=== PATIENT | female | born 1965 | race Caucasian/White ===

== ENCOUNTER → 2017-01-16 | Outpatient (CLI) | payer BC ==
[~2017-01-16] MED LIST: BUPR-83 PO; CITA40TA12 PO; LOVA40TA4 PO
--- NOTE | 2017-01-16 11:49 | DIAGNOSTIC IMAGING REPORT ---
RIGHT FINGER(S) MIN 2 VIEWS ROUTINE CLINICAL HISTORY: PAIN IN RIGHT FINGER Right pain COMPARISON: None. DISCUSSION: The bones and joint spaces appear intact. There is no evidence of fracture, dislocation or bony disease. There is no evidence for soft tissue swelling. IMPRESSION: Negative study. Electronically signed by: Raul Akers M.D. 01/16/2017 11:48 AM Dictated Date/Time: 01/16/2017 11:48 AM
== END | disposition home or self-care (01) ==
LOC: C.RAD1850 11:07
PROVIDERS: ATTEND Nurse Practitioner Family
DX: M79.644 Pain in right finger(s) (principal)

== ENCOUNTER → 2017-07-18 | Outpatient (CLI) | payer BC ==
--- NOTE | 2017-07-18 12:18 | DIAGNOSTIC IMAGING REPORT ---
LEFT FOOT MIN 3 VIEWS ROUTINE CLINICAL HISTORY: ACUTE PAIN OF L FOOT pain COMPARISON: None. DISCUSSION: The bones and joint spaces appear intact. There is no evidence of fracture, dislocation or bony disease. There is no evidence for soft tissue swelling. Small heel spur IMPRESSION: Small heel spur. Otherwise negative study The above report was generated using voice recognition software. It may contain grammatical, syntax or spelling errors. Electronically signed by: Raul Akers M.D. 07/18/2017 12:17 PM Dictated Date/Time: 07/18/2017 12:15 PM
== END | disposition home or self-care (01) ==
LOC: C.RAD1850 12:04
PROVIDERS: ATTEND Nurse Practitioner Family
DX: M79.672 Pain in left foot (principal); M77.32 Calcaneal spur, left foot

== ENCOUNTER → 2017-11-15 | Outpatient (CLI) | payer OTHER ==
--- NOTE | 2017-11-16 14:40 | MAMMOGRAPHY REPORT ---
BILATERAL DIGITAL SCREENING MAMMOGRAM TOMOSYNTHESIS WITH CAD: 11/15/2017 CLINICAL HISTORY: Routine screening. Patient has no complaints. TECHNIQUE: Breast tomosynthesis in addition to standard 2D mammography was performed. Current study was also evaluated with a Computer Aided Detection (CAD) system. COMPARISON: Comparison is made to exams dated: 10/05/2016 mammogram, 10/05/2015 mammogram, 4 mammogram, 12/16/2013 mammogram, 12/11/2013 mammogram - [facility], and 11/08/2011 [facility]. BREAST COMPOSITION: The tissue of both breasts is heterogeneously dense, which may obscure small mas ses. FINDINGS: No suspicious masses, calcifications, or areas of architectural distortion are noted in ei ther breast. There has been no significant interval change compared to prior exams. Scattered bilater al benign-appearing calcifications are not significantly changed. IMPRESSION: ACR BI-RADS CATEGORY 2: BENIGN There is no mammographic evidence of malignancy. A 1 year screening mammogram is recommended. The pa tient will receive written notification of the results. Approximately 10% of breast cancers are not detected with mammography. A negative mammographic report should not delay biopsy if a clinically suggestive mass is present. Makenzie Deleon M.D. ah/:11/15/2017 15:18:02 Sales Correspondent: Shruthi WEBER)(M), [facility] letter sent: Normal 1/2 BI-RADS Code: ACR BI-RADS Category 2: Benign
== END | disposition home or self-care (01) ==
LOC: C.MAMM 14:45
PROVIDERS: ATTEND Nurse Practitioner Family
DX: Z12.31 Encounter for screening mammogram for malignant neoplasm of breast (principal)

== ENCOUNTER 2020-01-01 08:21 | Inpatient (IN) ==
--- NOTE | 2019-12-17 16:03 | PAT Medication Instructions ---
Medication Instructions Date of Service December 17, 2019 Home Medications albuterol sulfate 90 mcg/actuation aerosol inhaler 2 puffs INH Q6H PRN atorvastatin 40 mg tablet 40 mg PO QAM cetirizine 10 mg tablet 10 mg PO QAM citalopram 40 mg tablet 40 mg PO QAM lisinopril 2.5 mg tablet 2.5 mg PO QAM omega-3 fatty acids 1,000 mg capsule 1,000 mg PO QAM mometasone 1 puffs INH QAM STOP taking 2 weeks before surgery (or as soon as possible if surgery is within 2 weeks) omega-3 fatty acids 1,000 mg capsule 1,000 mg PO QAM DO NOT take the morning of surgery cetirizine 10 mg tablet 10 mg PO QAM lisinopril 2.5 mg tablet 2.5 mg PO QAM Take morning of surgery With a small sip of water, OTHERWISE NOTHING TO EAT OR DRINK AFTER MIDNIGHT: albuterol sulfate 90 mcg/actuation aerosol inhaler 2 puffs INH Q6H PRN (use if needed; please bring with you to hospital day of surgery if possible) atorvastatin 40 mg tablet 40 mg PO QAM citalopram 40 mg tablet 40 mg PO QAM mometasone 1 puffs INH QAM Take evening before surgery albuterol sulfate 90 mcg/actuation aerosol inhaler 2 puffs INH Q6H PRN (if needed) Other Notes If you have any questions please call us at [phone] or [phone] or [phone] or [phone]
--- NOTE | 2019-12-18 11:49 | Anesthesiology Consultation ---
Date of Service December 18, 2019 Assessment & Plan (1) Encounter for pre-operative examination: Chart Review Chart Review: Acceptable Risk for Surgery (pending surgeon ordered PCP clearance) and Patient seen in Pre Admission Testing PCP clearance scheduled 12/19 Teaching & Discussion Pre-Anesthesia Teaching/Discussion Notes: Instructed NPO after midnight before surgery,except medications with 15 cc of water. Medication instructions provided according to the PAT guidelines. History Surgery Operation Date: 01/01/20 10:30 Proposed Procedures p L4-S1 Decompression and Fusion, Spinal Cord Monitoring - Lenin Cedillo DO Height/Weight Height: 5 ft 2 in Weight: 97.3 kg Allergies Allergy/AdvReac Type Severity Reaction Status Date / Time No Known Allergies Allergy Mild Verified 12/17/19 08:18 Medications Home Medications Medication Instructions Recorded Confirmed Last Taken albuterol sulfate 90 mcg/actuation 2 puffs INH Q6H PRN 09/19/19 12/17/19 Unknown aerosol inhaler atorvastatin 40 mg tablet 40 mg PO QAM 09/19/19 12/17/19 Unknown cetirizine 10 mg tablet 10 mg PO QAM 09/19/19 12/17/19 Unknown citalopram 40 mg tablet 40 mg PO QAM tab 09/19/19 12/17/19 Unknown lisinopril 2.5 mg tablet 2.5 mg PO QAM 09/19/19 12/17/19 Unknown omega-3 fatty acids 1,000 mg 1,000 mg PO QAM 09/19/19 12/17/19 Unknown capsule mometasone 1 puffs INH QAM ea 09/24/19 12/17/19 Unknown Past Medical History Medical History Anxiety Asthma, mild persistent Stable and controlled- albuterol inhaler use rare Chronic rhinitis DDD (degenerative disc disease), lumbar Depression History of cellulitis STREP A - SEEN [facility] 2006 - SENT TO [facility] FOR DEBRIDEMENT- NO RECENT ISSUES Hyperlipidemia Hypertension Left bundle branch block Follows with Dr. Bruno (cardio)- has had subsequent negative stress test in 2018 for LBBB. Seasonal allergies Spinal stenosis Ulnar nerve entrapment at elbow S/p ulnar nerve compression- still has right UE Exercise / Class Metabolic Activity II 4-5 Yardwork/Stairs/Walk up hill (one flight of stairs- no chest pain or SOB ) Past Family History Family History Mother Hypertension Father Dementia Grandmother Cancer Grandfather (Paternal) Heart disease Past Surgical History Surgical History H/O laparoscopy History of arthroscopy of right shoulder History of carpal tunnel release History of cholecystectomy History of fusion of cervical spine History of surgery on arm FOR DEBREIDMENT CELLULITIS Hx of colonoscopy Hx of decompression of ulnar nerve RIGHT Hx of myringotomy S/P foot surgery, right Past Anesthesia History No Hx of Anesthesia Complications and No Family Hx of Anesthesia Complications History of PONV No Hx of PONV and Hx of Motion Sickness (mild - in car as passenger ) Social History Smoking Status: Never smoker Do You Dip or Chew Tobacco: No Hx Alcohol Use: No Hx Substance Use: No Review of Systems Patient denies chest pain, shortness of breath, dyspnea on exertion, reflux, cough, wheezing, palpitations. No hx of seizures, stroke, AL, apnea/snoring. No hx of blood clots or blood transfusions No recent steroid use Physical Exam Vital Signs VITALS BP 142/95 P 91 TEMP 98.4 SP02 96% RESP 16 Constitutional no acute distress ENMT Mouth: no TMJ clicking, no chipped teeth and no loose teeth Thyromental Distance: > or= 3.5 Finger Breadths (3.5) Mallampati Class: I Permanent implant- front top right Neck neck extension not limited (BUT DOES HAVE HX OF CERVICAL FUSION) Respiratory normal respiratory effort; no respiratory distress Auscultation: lungs clear to auscultation bilaterally; no diminished lung sounds and no wheezes Cardiovascular Rate/Rhythm: regular rate and regular rhythm Heart Sounds: no murmur Vessels: no carotid bruit Extremities: no edema Musculoskeletal Spine: no pain with cervical ROM Neurologic moves all extremities Psychiatric Orientation: alert Testing Laboratory Results 12/18/19 11:55 12/18/19 11:55 PT 10.2 Seconds (9.0-12.0) 12/18/19 11:55 INR 1.0 (0.9-1.1) 12/18/19 11:55 APTT 23.3 Seconds (21.0-31.0) 12/18/19 11:55 Urine Color Yellow 12/18/19 11:55 Urine Appearance Clear (Clear) 12/18/19 11:55 Urine pH 5.0 (4.5-7.5) 12/18/19 11:55 Ur Specific [place] 1.016 (1.000-1.030) 12/18/19 11:55 Urine Protein Negative (Negative) 12/18/19 11:55 Urine Glucose (UA) Negative (Negative) 12/18/19 11:55 Urine Ketones Negative (Negative) 12/18/19 11:55 Urine Nitrite Negative (Negative) 12/18/19 11:55 Ur Leukocyte Esterase Negative (Negative) 12/18/19 11:55 Blood Type O Positive 12/18/19 11:55 Antibody Screen NEGATIVE 12/18/19 11:55 Electrocardiogram Date: 12/18/19 Findings: + NSR @ (89) and + LBBB Chest X-Ray Date: 12/18/19 Findings: + NAD Echocardiogram Date: 10/22/19 EF: 67% LV Function: normal RWMA: + none Other Findings: + LVH (Mild/concentric) Valvular Disease: + no significant valvular disease Abnormal septal motion from conduction delay. Atrial septum hypermobile. Appears intact. Grade 1 diastolic dysfunction Stress Test Date: 08/09/18 Resting EF: 55% Resting LV Function: normal Resting RWMA: + none Stress EKG nondiagnostic for ischemia due to underlying left bundle branch block . Negative stress echo for ischemia 94% MPHR. Below average exercise tolerance for age and gender, 85% of predicted, achieving 7.0 METS. Resting echo shows abnormal septal motion consistent with left bundle branch block.
--- NOTE | 2019-12-18 12:43 | XRay Report ---
XR chest Pre-admission PA/Lat CLINICAL HISTORY: Preoperative chest COMPARISON STUDY: No previous studies for comparison. FINDINGS: The cardiac and mediastinal contours are normal. There is no evidence of focal pulmonary co nsolidation. There is no evidence of failure. No pleural effusions are visualized.[Postsurgical villalobos es are present within the cervical spine. IMPRESSION: No active disease in the chest. ACT 112: Negative or not required by law. Electronically signed by: Caleb Crum M.D. 12/18/2019 12:41 PM
--- NOTE | 2019-12-18 12:51 | Electrocardiogram Report ---
Test Reason : Blood Pressure : / mmHG Vent. Rate : 089 BPM Atrial Rate : 089 BPM P-R Int : 146 ms QRS Dur : 144 ms QT Int : 406 ms P-R-T Axes : 067 066 040 degrees QTc Int : 493 ms Normal sinus rhythm Left bundle branch block Abnormal ECG When compared with ECG of 27-MAR-2007 10:16, Left bundle branch block is now Present Confirmed by Johny Musa ([id number]) on 12/18/2019 12:51:51 PM Referred By: Lenin Cedillo Confirmed By:Johny Musa
[2019-12-18 13:54] LABS: Appearance Urine Clear (Clear); Bilirubin Urine Negative (Negative); Blood Urine Negative (Negative); Color Urine Yellow; Glucose Urine UA Negative (Negative); Ketones Urine Negative (Negative); Leukocyte Esterase Urine Negative (Negative); Nitrite Urine Negative (Negative); Protein Urine Negative (Negative); Specific Gravity Urine 1.016 (1.000-1.030); Urobilinogen Urine Negative (Negative)
[2019-12-18 13:55] LABS: Basophils # (auto) 0.01 K/uL (0-0.2); Basophils % (auto) 0.2 %; Eosinophils # (auto) 0.09 K/uL (0-0.5); Eosinophils % (auto) 1.8 %; Hematocrit (blood only) 37.3 % (37-47); Immature Granulocytes # (auto) 0.01 K/uL (0.00-0.02); Immature Granulocytes % (auto) 0.2 %; Lymphocytes # (auto) 2.05 K/uL (1.2-3.4); Lymphocytes % (auto) 41.5 %; Mean Corpuscular Hemoglobin 30.4 pg (25-34); Mean Corpuscular Hgb Conc 34.9 g/dL (32-36); Mean Corpuscular Volume 87.1 fL (80-100); Mean Platelet Volume 9.7 fL (7.4-10.4); Monocytes # (auto) 0.35 K/uL (0.11-0.59); Monocytes % (auto) 7.1 %; Neutrophils # (auto) 2.43 K/uL (1.4-6.5); Neutrophils % (auto) 49.2 %; Platelet Count 250 K/uL (130-400); RDW Coefficient of Variation 12.2 % (11.5-14.5); RDW Standard Deviation 39.1 fL (36.4-46.3); Red Blood Count 4.28 M/uL (4.2-5.4); White Blood Count 4.94 K/uL (4.8-10.8)
[2019-12-18 14:02] LABS: Partial Thromboplastin Ratio 0.9; Partial Thromboplastin Time 23.3 Seconds (21.0-31.0); Prothrombin Time 10.2 Seconds (9.0-12.0)
[2019-12-18 14:14] LABS: BUN Creatinine Ratio 14.5 (10-20); Calcium 9.4 mg/dl (8.5-10.1); Creatinine Clr Calc Pharmacy 62.3 ml/min; Est GFR (African American) 63.4; Est GFR (Non-African American) 54.7; Potassium 4.5 mmol/L (3.5-5.1)
[~2020-01-01 08:21] MED LIST changes: +ACETAMINOPHEN 500 MG TAB PO SCH; -BUPR-83 PO; +CEFAZOLIN 2000MG 2,000 MG/15 ML SYR IV SCH; -CITA40TA12 PO; +CeleBREX 200 MG CAP PO SCH; +GABAPENTIN 900 MG DOSE PO SCH; -LOVA40TA4 PO; +LR 15ML/HR IV SCH
[2020-01-01] MEDS ORDERED: DEXAMETHASONE SOD INJ 4 MG/ML VIAL ONE (09:12)
[2020-01-01] MEDS ORDERED: NEOSTIGMINE METHYLSULFATE 1 MG/ML 10ML VIAL ONE (09:12)
[2020-01-01] MEDS ORDERED: GLYCOPYRROLATE 0.2 MG/ML VIAL ONE (09:12)
[2020-01-01] MEDS ORDERED: LIDOCAINE HCL 2% 2 ML VIAL/AMP(20MG/ML) INFIL ONE (09:12)
[2020-01-01] MEDS ORDERED: ONDANSETRON INJ 2 MG/ML 2 ML VIAL ONE (09:12)
[2020-01-01] MEDS ORDERED: PROPOFOL IV EMULSION 10 MG/ML 20 ML VIAL IV ONE (09:12)
[2020-01-01] MEDS ORDERED: fentaNYL citrate 100 MCG/2 ML VIAL ONE (09:12)
[2020-01-01] MEDS ORDERED: MIDAZOLAM HCL 1 MG/ML 2ML VIAL ONE (09:12)
[2020-01-01] MEDS ORDERED: ROCURONIUM BROMIDE 10 MG/ML 5 ML VIAL ONE ×2 (09:12→11:42)
[2020-01-01] MEDS ORDERED: HYDROmorphone INJ 2 MG/ML SYR/VIAL ONE (09:13)
[2020-01-01] MEDS ORDERED: fentaNYL citrate 100 MCG/2 ML VIAL IV PRN (09:36)
[2020-01-01] MEDS ORDERED: ATROPINE SULFATE 0.1 MG/ML 10ML SYR IV PRN (09:36)
[2020-01-01] MEDS ORDERED: ONDANSETRON INJ 2 MG/ML 2 ML VIAL IV PRN ×2 (09:36→14:20)
[2020-01-01] MEDS ORDERED: HYDROmorphone INJ 2 MG/ML SYR/VIAL IV PRN (09:36)
[2020-01-01] MEDS ORDERED: PROMETHAZINE HCL 12.5 MG in SODIUM CHLORIDE 0.9% 50 ML IV PRN ×2 (09:36→14:20)
[2020-01-01] MEDS ORDERED: ePHEDrine sulfate 50 MG/ML AMP IV PRN (09:36)
--- NOTE | 2020-01-01 09:50 | History & Physical Bridge Note ---
Date of Service January 01, 2020 History & Physical Bridge Note I have examined the patient, reviewed the History & Physical and in the interval since the performance of the History & Physical I have noted the following changes of clinical significance: no changes noted
--- NOTE | 2020-01-01 09:51 | History & Physical Report ---
Date of Service January 01, 2020 Assessment & Plan (1) Neurogenic claudication due to lumbar spinal stenosis: L4-S1 decompression fusion Present on Admission?: Yes History of Present Illness Chief Complaint: Back and leg pain Primary Care Provider: Janel Benítez This is a 54-year-old female who presents with worsening back and leg pain. After failing extensive course of nonoperative care she is here for surgical intervention. Allergies Allergy/AdvReac Type Severity Reaction Status Date / Time No Known Allergies Allergy Mild Verified 01/01/20 08:48 Home Medications Home Medications Medication Instructions Recorded Confirmed Type albuterol sulfate 90 mcg/actuation 2 puffs INH Q6H PRN 09/19/19 01/01/20 History aerosol inhaler atorvastatin 40 mg tablet 40 mg PO QAM 09/19/19 01/01/20 History cetirizine 10 mg tablet 10 mg PO QAM 09/19/19 01/01/20 History citalopram 40 mg tablet 40 mg PO QAM tab 09/19/19 01/01/20 History lisinopril 2.5 mg tablet 2.5 mg PO QAM 09/19/19 01/01/20 History mometasone 1 puffs INH QAM ea 09/24/19 01/01/20 History bupropion HCl 100 mg PO DAILY 12/23/19 01/01/20 History Past Med/Surg History Medical History Anxiety Asthma, mild persistent Stable and controlled- albuterol inhaler use rare Chronic rhinitis DDD (degenerative disc disease), lumbar Depression History of cellulitis STREP A - SEEN [facility] 2006 - SENT TO [facility] FOR DEBRIDEMENT- NO RECENT ISSUES Hyperlipidemia Hypertension Left bundle branch block Follows with Dr. Bruno (cardio)- has had subsequent negative stress test in 2018 for LBBB. Seasonal allergies Spinal stenosis Ulnar nerve entrapment at elbow S/p ulnar nerve compression- still has right UE Surgical History H/O laparoscopy History of arthroscopy of right shoulder History of carpal tunnel release History of cholecystectomy History of fusion of cervical spine History of surgery on arm FOR DEBREIDMENT CELLULITIS Hx of colonoscopy Hx of decompression of ulnar nerve RIGHT Hx of myringotomy S/P foot surgery, right Family History Mother Hypertension Father Dementia Grandmother Cancer Grandfather (Paternal) Heart disease Social History (System 12/10/19 @ 15:04 by Yumi Aguayo) Preferred Language: Samoan Communication Ability: Effective Beliefs That Will Affect Care: None Current Living Situation: Spouse and Family Feels Safe at Home: Yes Smoking Status: Never smoker Do You Dip or Chew Tobacco: No ; Second Hand Exposure: No ; Hx Alcohol Use: No Hx Substance Use: No Physical Exam Physical Exam: Patient is alert and oriented neurologically intact. Results & Data Vital Signs (Past 12 Hours) Vital Signs Temp Pulse Resp BP Pulse Ox 01/01/20 08:57 36.8 C 72 20 139/83 96
[2020-01-01] MEDS ORDERED: BUPIVACAINE/EPINEPHRINE 0.5% MPF 1:200,000 10 ML VIAL ONE (10:09)
[2020-01-01] MEDS ORDERED: BACITRACIN INJ 50,000 UNIT VIAL ONE (10:10)
[2020-01-01] MEDS ORDERED: FLOSEAL HEMOSTATIC MATRIX 10ML TOP ONE (10:56)
[2020-01-01] MEDS ORDERED: PHENYLEPHRINE 100MCG/ML 5ML SYR ONE (11:46)
--- NOTE | 2020-01-01 12:18 | Operative Report ---
Post Operative Report Pre & Post Diagnosis Operation Date: 01/01/20 10:35 Pre-Op Diagnosis: Neurogenic claudication due to lumbar spinal stenosis Post-Op Diagnosis: Neurogenic claudication due to lumbar spinal stenosis I identified the patient and participated in the time-out.: Yes Procedure Operation Date: 01/01/20 10:35 Actual Procedures #1 lumbar decompression with bilateral medial facetectomies foraminotomies L3-4, L4-5, L5-S1. #2 posterior spinal fusion L4-5 L5-S1. #3 placement posterior instrumentation L4-5 L5-S1. #4 interbody fusion L4-5 L5-S1. #5 placed a peek cage 11 x 22 mm at L4-5 and L5-S1. #6 placement locally harvested morselized autograft in the posterior lateral gutters. #7 placement infuse collagen sponge, master graft in the posterior lateral gutters and ostial amp interbody space. Surgeon Lenin Cedillo, Business Travel Consultant Hui Zendejas Estimated Blood Loss 200 Findings See Below The patient is 5 feet 2 inches tall weighing over 96 kg with a BMI of 39. The patient's body habitus did add significant technical difficulty requiring her deepest retractors and longest instruments in order to perform her procedure. This added at least 50% increase in operative time. Specimens None Indications This is a 54-year-old female that presents with above-mentioned diagnosis after failing extensive course of nonoperative care is here for surgical invention. Description of Procedure Patient was met with identified informed consent obtained. Patient was then taken to the operative suite underwent intubation placed in a prone position the Alfonso table on top of the Norberto frame. All bony prominences well-padded eyes inspected to ensure no external pressure placed upon the. This point the lumbar spine was prepped and draped in the normal sterile fashion. Sharp dissection with the assistance of Bovie cautery was performed down to and exposing the lamina and transverse processes of L4-L5 and sacral ala bilaterally. From a caudal cephalad fashion complete laminectomy of L5 L4 and partial laminectomy of L3 is performed including bilateral medial facetectomies and foraminotomies addressing severe neural compression. Pedicle screws were then placed in L4-L5 and S1 levels bilaterally with assistance of fluoroscopy the proper sized kendra placed. By way of a transforaminal approach on the right complete discectomy of L5-S1 was performed endplates curetted to subcortical bleeding bone and a 11 x 22 mm peek cage filled with osteo-bone graft tapped in position. Then proceeded to L4-[address] of a transforaminal approach on the right complete discectomy was performed endplates curetted to subcortical bleeding bone and 11 x 22 mm peek cage filled with osteo-bone graft tapped in position. The rods were then locked into final position bilaterally. The transverse processes of L4-L5 and sacral ala burred to subcortical bleeding bone. Infuse collagen sponge master graft local autograft placed in the posterior lateral gutters. 15 round JENN drain inserted. The incision was then closed with 1 Vicryl in the fascia 2-0 Vicryl subcutaneously and 4 Monocryl for final skin closure. Steri- Strips dressings placed. Patient will continue to PACU stable addition. Please note Hui Zendejas present at the entire procedure involved the patient positioning complex portions of the surgery and final skin closure. Lastly spinal cord monitoring was utilized that the procedure no changes noted. I attest to the content of the Intraoperative Record and any orders documented therein. Any exceptions are noted below.
--- NOTE | 2020-01-01 13:01 | Fluoroscopy Report ---
FL lumbar spine 2-3V CLINICAL HISTORY: L4-S1 DECOMP/FUSION COMPARISON STUDY: None. FLUOROSCOPY TIME: 21 seconds. FLUOROSCOPIC IMAGES: 2 FINDINGS: These images demonstrate L4-L5 and L5-S1 discectomies with interbody spacer placement. Ther e is a posterior decompression. There are bilateral pedicle screws at the L4, L5 and S1 levels with i nterconnecting rods. Hardware is intact. There are no unexpected radiopaque foreign bodies. IMPRESSION: L4-S1 posterior decompression, discectomy and bilateral pedicle screw fusion. ACT 112: Negative or not required by law. Electronically signed by: Javed Schuler M.D. 01/01/2020 12:59 PM
--- NOTE | 2020-01-01 13:18 | Anesthesiology Progress Note ---
Date of Service January 01, 2020 Anesthesia Post Procedure Vital Signs Vital Signs: Temp Pulse Pulse Resp BP BP Pulse Ox 01/01/20 13:10 99 H 16 119/79 95 01/01/20 13:00 97 H 16 130/69 99 01/01/20 12:50 94 H 16 144/68 H 100 01/01/20 12:44 36.8 C 98 H 10 L 127/67 98 01/01/20 08:57 36.8 C 72 20 139/83 96 Transfer of Care Handoff Completed per policy Notes Mental Status: alert / awake / arousable and participated in evaluation Patient Amnestic to Procedure: Yes Nausea / Vomiting: adequately controlled Pain: adequately controlled Airway Patency, RR, SpO2: stable & adequate BP & HR: stable & adequate Hydration State: stable & adequate Anesthetic Complications: no major complications apparent and Pt Satisfied with anesthetic care
[2020-01-01] MEDS ORDERED: METOCLOPRAMIDE HCL INJ 5 MG/ML 2 ML VIAL IV PRN (14:20)
[2020-01-01] MEDS ORDERED: ACETAMINOPHEN 500 MG TAB PO PRN (14:20)
[2020-01-01] MEDS ORDERED: ACETAMINOPHEN 1,000 MG/100 ML VIAL IV PRN (14:20)
[2020-01-01] MEDS ORDERED: FAMOTIDINE 20 MG TAB PO PRN (14:20)
[2020-01-01] MEDS ORDERED: DO NOT ADMINISTER FLU VACCINE PRN (14:20)
[2020-01-01] MEDS ORDERED: NALOXONE HCL 0.4 MG/1 ML VIAL/CARP IV PRN (14:20)
[2020-01-01] MEDS ORDERED: ALBUTEROL HFA 8 GM INHALER INH PRN (14:20)
[2020-01-01] MEDS ORDERED: ALUMINUM/MAGNESIUM SUSP 30 ML UDC PO PRN (14:20)
[2020-01-01] MEDS ORDERED: ONDANSETRON 4 MG OD TAB PO PRN (14:20)
[2020-01-01] MEDS ORDERED: LORazepam 0.5 MG TAB PO PRN (14:20)
[2020-01-01] MEDS ORDERED: HYDROmorphone INJ 0.5 MG/0.5 ML SYR IV PRN (14:20)
[2020-01-01] MEDS ORDERED: bisacodyL 10 MG SUPP PR PRN (14:20)
[2020-01-01] MEDS ORDERED: DO NOT ADMINISTER PNEUMOCOCCAL VACCINE PRN (14:20)
[2020-01-01] MEDS ORDERED: LORazepam 0.5 MG/1 ML VIAL IV PRN (14:20)
[2020-01-01] MEDS ORDERED: SOD PHOSPHATE/SOD BIPHOSPHATE ENEMA 132 ML BTL PR PRN (14:20)
[2020-01-01] MEDS ORDERED: MAGNESIUM HYDROXIDE SUSP 30 ML UDC PO PRN (14:20)
[2020-01-01] MEDS: KETOROLAC TROMETHAMINE 15 MG/ML VIAL IV SCH ×2 (15:14→20:20)
[2020-01-01] MEDS: LACTATED RINGER'S 1,000 ML IV SCH ×2 (16:10→20:16)
[2020-01-01] MEDS: FLUTICASONE FUROATE 100MCG 14 PUFFS/INHALER INH SCH (16:10)
[2020-01-01] MEDS: TRAMADOL HCL 50 MG TABLET PO PRN (17:33)
[2020-01-01] MEDS ORDERED: Nursing to Pharmacy Communication ONE ×2 (18:04→18:30)
[2020-01-01] MEDS: CEFAZOLIN 2000MG 2,000 MG/15 ML SYR IV SCH (18:43)
[2020-01-01] MEDS: DOCUSATE SODIUM/SENNA 50/8.6MG TAB PO SCH (20:17)
[2020-01-01 22:04] LABS: Appearance Urine Clear (Clear); Bilirubin Urine Negative (Negative); Blood Urine Negative (Negative); Color Urine Yellow; Glucose Urine UA Negative (Negative); Ketones Urine Negative (Negative); Leukocyte Esterase Urine Negative (Negative); Nitrite Urine Negative (Negative); Protein Urine Negative (Negative); Specific Gravity Urine 1.012 (1.000-1.030); Urobilinogen Urine Negative (Negative)
[2020-01-02] MEDS: CEFAZOLIN 2000MG 2,000 MG/15 ML SYR IV SCH (00:06)
[2020-01-02] MEDS: OXYCODONE HCL IR 5 MG TAB (IMMEDIATE RELEASE) PO PRN ×6 (00:06→23:21)
[2020-01-02] MEDS: KETOROLAC TROMETHAMINE 15 MG/ML VIAL IV SCH ×2 (00:07→09:04)
[2020-01-02] MEDS: POLYETHYLENE (MIRALAX) 17 GM PACK PO SCH ×4 (05:46→23:21)
[2020-01-02 07:03] LABS: Hematocrit (blood only) 32.8 % (37-47); Hemoglobin 11.2 g/dL (12.0-16.0); Immature Granulocytes # (auto) 0.05 K/uL (0.00-0.02); Immature Granulocytes % (auto) 0.4 %; Lymphocytes # (auto) 1.29 K/uL (1.2-3.4); Lymphocytes % (auto) 10.3 %; Mean Corpuscular Hemoglobin 30.3 pg (25-34); Mean Corpuscular Hgb Conc 34.1 g/dL (32-36); Mean Corpuscular Volume 88.6 fL (80-100); Mean Platelet Volume 9.7 fL (7.4-10.4); Monocytes % (auto) 4.8 %; Neutrophils # (auto) 10.56 K/uL (1.4-6.5); Neutrophils % (auto) 84.5 %; Platelet Count 241 K/uL (130-400); RDW Coefficient of Variation 11.9 % (11.5-14.5); RDW Standard Deviation 38.6 fL (36.4-46.3)
[2020-01-02 07:32] LABS: BUN Creatinine Ratio 14.3 (10-20); Calcium 9.1 mg/dl (8.5-10.1); Creatinine Clr Calc Pharmacy 61.5 ml/min; Est GFR (African American) 62.7; Est GFR (Non-African American) 54.1; Potassium 4.1 mmol/L (3.5-5.1)
--- NOTE | 2020-01-02 08:11 | Anesthesiology Progress Note ---
Date of Service January 02, 2020 Anesthesia Post Procedure Vital Signs Vital Signs: Temp Pulse Pulse Resp BP BP Pulse Ox 01/02/20 07:45 37.3 C 87 16 121/71 93 01/02/20 03:50 37.2 C 85 14 120/72 96 01/01/20 23:56 36.8 C 85 14 121/73 96 01/01/20 20:00 36.7 C 109 H 16 138/79 93 01/01/20 19:28 36.5 C 94 H 16 114/75 97 01/01/20 18:42 36.8 C 96 H 16 118/73 98 01/01/20 17:54 90 98/64 L 97 01/01/20 17:04 36.8 C 92 H 18 148/84 H 94 01/01/20 16:08 36.9 C 99 H 16 100/66 92 01/01/20 15:12 36.4 C L 96 H 16 124/64 99 01/01/20 14:35 36.3 C L 98 H 20 111/72 99 01/01/20 14:05 36.5 C 95 H 16 109/69 98 01/01/20 13:50 100 H 13 109/68 100 01/01/20 13:35 36.6 C 96 H 12 124/61 96 01/01/20 13:20 36.6 C 94 H 16 120/66 96 01/01/20 13:10 99 H 16 119/79 95 01/01/20 13:00 97 H 16 130/69 99 01/01/20 12:50 94 H 16 144/68 H 100 01/01/20 12:44 36.8 C 98 H 10 L 127/67 98 01/01/20 08:57 36.8 C 72 20 139/83 96 Pain Intensity Right Leg: Pain Intensity: 4 Back: Pain Intensity: 5 Notes Mental Status: alert / awake / arousable Patient Amnestic to Procedure: Yes Nausea / Vomiting: adequately controlled Pain: adequately controlled (pt states she is comfortable with where her pain is at; she wants to continue to not take narcotics if she is able to tolerate it.) Airway Patency, RR, SpO2: stable & adequate BP & HR: stable & adequate Hydration State: stable & adequate Anesthetic Complications: no major complications apparent
[2020-01-02] MEDS: CITALOPRAM 40 MG TAB PO SCH (08:58)
[2020-01-02] MEDS: FLUTICASONE FUROATE 100MCG 14 PUFFS/INHALER INH SCH (08:58)
[2020-01-02] MEDS: BuPROPion SR 100 MG TABCR PO SCH (08:59)
[2020-01-02] MEDS: ATORVASTATIN 40 MG TAB PO SCH (08:59)
[2020-01-02] MEDS: CETIRIZINE HCL 10 MG TABLET PO SCH (09:00)
--- NOTE | 2020-01-02 13:58 | Orthopedic Progress Note ---
Date of Service January 02, 2020 Assessment & Plan (1) Neurogenic claudication due to lumbar spinal stenosis: This time we will continue physical therapy monitor JENN operatively discharge home in the next few days Present on Admission?: Yes Admission and Anticipated Discharge Date Admission Date: January 01, 2020 Subjective Back pain controlled leg pain improved Physical Exam Physical Exam: Patient is good strength testing appears comfortable. Results & Data ([facility]) Vital Signs (Past 12 Hours) Vital Signs Temp Pulse Pulse Resp BP BP Pulse Ox 01/02/20 12:05 36.8 C 82 16 111/69 97 01/02/20 08:57 79 121/76 01/02/20 07:45 37.3 C 87 16 121/71 93 01/02/20 03:50 37.2 C 85 14 120/72 96
[2020-01-02] MEDS: DOCUSATE SODIUM/SENNA 50/8.6MG TAB PO SCH (20:30)
[2020-01-03] MEDS: HYDROmorphone INJ 1 MG/ML SYRINGE IV PRN ×2 (00:15→06:25)
[2020-01-03] MEDS: TRAMADOL HCL 50 MG TABLET PO PRN ×3 (02:37→16:47)
[2020-01-03] MEDS: OXYCODONE HCL IR 5 MG TAB (IMMEDIATE RELEASE) PO PRN ×4 (04:26→20:39)
[2020-01-03] MEDS: CITALOPRAM 40 MG TAB PO SCH (08:13)
[2020-01-03] MEDS: FLUTICASONE FUROATE 100MCG 14 PUFFS/INHALER INH SCH (08:13)
[2020-01-03] MEDS: BuPROPion SR 100 MG TABCR PO SCH (08:14)
[2020-01-03] MEDS: ATORVASTATIN 40 MG TAB PO SCH (08:14)
[2020-01-03] MEDS: CETIRIZINE HCL 10 MG TABLET PO SCH (08:14)
[2020-01-03] MEDS ORDERED: DEXAMETHASONE SOD PHOSPHATE 8 MG in SYRINGE 0 ML IV STA (10:24)
--- NOTE | 2020-01-03 10:29 | Orthopedic Progress Note ---
Date of Service January 03, 2020 Assessment & Plan (1) Neurogenic claudication due to lumbar spinal stenosis: At this time we will continue physical therapy monitor her JENN output anticipate discharge home tomorrow. Present on Admission?: Yes Admission and Anticipated Discharge Date Admission Date: January 01, 2020 Subjective Back pain controlled leg pain improved. Physical Exam Physical Exam: Patient is good strength testing. Results & Data ([facility]) Vital Signs (Past 12 Hours) Vital Signs Temp Pulse Resp BP BP Pulse Ox 01/03/20 08:16 123/76 01/03/20 06:34 37.1 C 90 16 110/75 96 01/02/20 22:56 37.1 C 92 H 16 109/70 94
[2020-01-03] MEDS: DOCUSATE SODIUM/SENNA 50/8.6MG TAB PO SCH (20:37)
[2020-01-04] MEDS: OXYCODONE HCL IR 5 MG TAB (IMMEDIATE RELEASE) PO PRN ×2 (00:37→08:06)
[2020-01-04] MEDS: BuPROPion SR 100 MG TABCR PO SCH (08:07)
[2020-01-04] MEDS: ATORVASTATIN 40 MG TAB PO SCH (08:07)
[2020-01-04] MEDS: CETIRIZINE HCL 10 MG TABLET PO SCH (08:07)
[2020-01-04] MEDS: CITALOPRAM 40 MG TAB PO SCH (08:07)
[2020-01-04] MEDS: FLUTICASONE FUROATE 100MCG 14 PUFFS/INHALER INH SCH (08:07)
--- NOTE | 2020-01-04 08:54 | Discharge Summary ---
Date of Service January 04, 2020 Admission HPI Per Admitting Provider This is a 54-year-old female who presents with worsening back and leg pain. After failing extensive course of nonoperative care she is here for surgical intervention. Discharge Data Consultations 01/01/20 14:20 Consult Case Management - Discharge Planning Routine Procedures Performed Operation Date: 01/01/20 10:35 Actual Procedures p L4-S1 Decompression and Fusion, Spinal Cord Monitoring(Not Applicable) - Lenin Cedillo DO Hospital Course (1) Lumbar spinal stenosis: Patient is a 54-year-old female history physical examination her graft images consistent with spinal stenosis. This reason she brought to the operating room and underwent a lumbar decompression and fusion from L4 to the sacrum. She is brought to PACU in stable condition. She was transferred to the orthopedic floor with a JENN drain Benson in place. She is seen by physical therapy postop day #1 for ambulation gait training. Throughout her hospital course her dressing including dry and intact her calves remained supple nontender her abdomen supple nontender. On 01/04/2020 the patient was deemed safe for home discharge. Her discharge instructions for avoid any lifting heavier than 5 to 7 pounds and avoid any full bending at the waist. There were going to change her dressing and DC her drain prior to discharge. She is to change dressing once daily till there is no drainage then she may begin showering. She is to maintain her compression stockings for 2 weeks as well. We will see her in the office in approximately 2 weeks which time AP lateral lumbar spine films will be obtained she is to call and be seen sooner if she develops any increased pain, drainage from the incision, fevers or chills.
[2020-01-04] MEDS: TRAMADOL HCL 50 MG TABLET PO PRN (10:30)
== END 2020-01-04 11:23 | disposition home or self-care (01) | DRG 455 ==
LOC: ASU 08:21 → MERGE 10:30 → 3E 12:56

== ENCOUNTER 2023-01-06 09:32 | Inpatient (IN) ==
--- NOTE | 2022-11-29 12:24 | PAT Medication Instructions ---
Medication Instructions Date of Service November 29, 2022 Home Medications albuterol sulfate 90 mcg/actuation aerosol inhaler (Ventolin HFA) 2 puffs inhalation Q6H PRN ASTHMA atorvastatin 40 mg tablet (Lipitor) 40 mg PO QAM cetirizine 10 mg tablet 10 mg PO QAM citalopram 40 mg tablet 40 mg PO QAM lisinopril 2.5 mg tablet 2.5 mg PO QAM bupropion HCl 100 mg tablet,12 hr sustained-release 100 mg PO QAM diltiazem HCl 120 mg capsule,extended release 12 hr 120 mg PO QAM budesonide-formoterol HFA 80 mcg-4.5 mcg/actuation aerosol inhaler (Symbicort) 2 puff inhalation BID PRN Wheezing DO NOT take the morning of surgery cetirizine 10 mg tablet 10 mg PO QAM lisinopril 2.5 mg tablet 2.5 mg PO QAM Take morning of surgery With a small sip of water, OTHERWISE NOTHING TO EAT OR DRINK AFTER MIDNIGHT: albuterol sulfate 90 mcg/actuation aerosol inhaler (Ventolin HFA) 2 puffs inhalation Q6H PRN ASTHMA (use if needed; please bring with you to hospital day of surgery if possible) atorvastatin 40 mg tablet (Lipitor) 40 mg PO QAM citalopram 40 mg tablet 40 mg PO QAM bupropion HCl 100 mg tablet,12 hr sustained-release 100 mg PO QAM diltiazem HCl 120 mg capsule,extended release 12 hr 120 mg PO QAM budesonide-formoterol HFA 80 mcg-4.5 mcg/actuation aerosol inhaler (Symbicort) 2 puff inhalation BID PRN Wheezing (if needed) Take evening before surgery albuterol sulfate 90 mcg/actuation aerosol inhaler (Ventolin HFA) 2 puffs inhalation Q6H PRN ASTHMA (if needed) budesonide-formoterol HFA 80 mcg-4.5 mcg/actuation aerosol inhaler (Symbicort) 2 puff inhalation BID PRN Wheezing (if needed) Other Notes If you have any questions please call us at [phone] or [phone] or [phone] or [phone]
--- NOTE | 2022-12-06 10:49 | Anesthesiology Consultation ---
Date of Service December 06, 2022 Assessment & Plan (1) Encounter for pre-operative examination: - COVID screening: Per assessment on 12/06: No known COVID-19 positive contacts or current COVID-19 related symptoms. Travel screen negative. At surgeon discretion if preop Covid testing being done. - S/P L4-S1 decompression/fusion (01/01/20): Grade view 1, Stevens #2, ETT 7.5 at [facility]. No issues noted per post-op anesthesia progress note. - Pt scheduled to see cardiology prior to surgery. Awaiting cardiology office visit note (Dr. Bruno, appt 12/07). Chart Review Chart Review: Patient seen in Pre Admission Testing Teaching & Discussion Pre-Anesthesia Teaching/Discussion Notes: Instructed NPO after midnight before surgery,except medications with 15 cc of water. Medication instructions provided according to the PAT guidelines. History Surgery Operation Date: 12/22/22 07:45 Proposed Procedures p L3-L4 Decompression, L3-S1 Fusion, L4-S1 Hardware Removal, Spinal Cord Monitor amy - Lenin Cedillo, Height/Weight Height: 5 ft 2 in Weight: 98.3 kg Allergies Allergy/AdvReac Type Severity Reaction Status Date / Time No Known Allergies Allergy Mild Verified 11/25/22 12:04 Medications Home Medications Medication Instructions Recorded Confirmed Last Taken albuterol sulfate 90 mcg/actuation 2 puffs inhalation Q6H PRN ASTHMA 09/19/19 11/25/22 Unknown aerosol inhaler (Ventolin HFA) atorvastatin 40 mg tablet (Lipitor) 40 mg PO QAM 09/19/19 11/25/22 12/31/19 08:00 citalopram 40 mg tablet 40 mg PO QAM 09/19/19 11/25/22 01/01/20 06:30 lisinopril 2.5 mg tablet 2.5 mg PO QAM 09/19/19 11/25/22 01/01/20 06:30 bupropion HCl 100 mg tablet,12 hr 100 mg PO QAM 12/23/19 11/25/22 12/31/19 08:00 sustained-release diltiazem HCl 120 mg 120 mg PO QAM 09/25/20 11/25/22 Unknown capsule,extended release 12 hr budesonide-formoterol HFA 80 2 puff inhalation BID PRN Wheezing 11/25/22 11/25/22 Unknown mcg-4.5 mcg/actuation aerosol inhaler (Symbicort) Past Medical History Medical History Anxiety Chronic rhinitis DDD (degenerative disc disease), lumbar Depression History of cellulitis Strep A (seen at [facility] 2006), sent to [facility] for debridement, no recent issues Hyperlipidemia Hypertension Left bundle branch block Follows with Dr. Bruno (cardio) Has had subsequent negative stress test in 2018 for LBBB evaluation Mild intermittent asthma Morbid obesity Seasonal allergies Spinal stenosis Exercise / Class Metabolic Activity II 4-5 Yardwork/Stairs/Walk up hill (one FS (no CP, no SOB)) Past Family History Family History Mother Hypertension Father Dementia Grandmother Cancer Grandfather (Paternal) Heart disease Past Surgical History Surgical History H/O laparoscopy History of arthroscopy of right shoulder History of carpal tunnel release History of cholecystectomy History of fusion of cervical spine C4-C5, good ROM per pt History of lumbar fusion L4-S1 decompression/fusion (01/01/20): Grade view 1, Stevens #2, ETT 7.5 at [facility]. No issues noted per post-op anesthesia progress note. History of surgery on arm Debridement (for cellulitis) Hx of colonoscopy Hx of decompression of ulnar nerve Right Hx of myringotomy S/P foot surgery, right Past Anesthesia History No Hx of Anesthesia Complications and No Family Hx of Anesthesia Complications History of PONV No Hx of PONV and Hx of Motion Sickness Social History Smoking Status: Never smoker Do You Dip or Chew Tobacco: No Hx Alcohol Use: No Hx Substance Use: No substance use type: does not use Review of Systems Intermittent, non-productive cough r/t allergies/environmental stressors. Patient denies chest pain, shortness of breath, dyspnea on exertion, fever, chills, wheezing, palpitations. Physical Exam Vital Signs VITALS BP 118/66 P 80 TEMP 98.3 SP02 99%RA RESP 16 PHYSICAL Full cervical extension range of motion. Full TMJ range of motion. TMD 3 finger breaths Mallampati Score 1 Dentition: intact, upper front right side implant Lungs: clear throughout to auscultation Cardiac: regular rate and rhythm, no murmurs noted Spine: normal Carotid arteries: negative bruit Extremities: no edema Lab Results Anesthesia Preop Results Results Anesthesia Widget: WBC 5.79 K/ul (4.8-10.8) 12/06/22 Hgb 13.4 g/dl (12.0-16.0) 12/06/22 Hct 38.9 % (37.0-47.0) 12/06/22 Plt 280 K/uL (130-400) 12/06/22 Na 139 mmol/L (136-145) 12/06/22 K 4.6 mmol/L (3.5-5.1) 12/06/22 Cl 104 mmol/L (98-107) 12/06/22 CO2 31 mmol/L (21-32) 12/06/22 BUN 17 mg/dl (6-23) 12/06/22 Creat 1.05 mg/dl (0.6-1.2) 12/06/22 Glucose Level 94 mg/dl (70-99(Fasting)) 12/06/22 PT 10.3 Seconds (9.0-12.0) 12/06/22 PTT 24.4 Seconds (21.0-31.0) 12/06/22 INR 1.0 (0.9-1.1) 12/06/22 Urine Color Yellow 12/06/22 Urine Appearance Clear (Clear) 12/06/22 Urine pH 5.0 (4.5-7.5) 12/06/22 Urine Specific [place] 1.021 (1.000-1.030) 12/06/22 Urine Protein Negative (Negative) 12/06/22 Urine Glucose (UA) Negative (Negative) 12/06/22 Urine Ketones Negative (Negative) 12/06/22 Urine Blood Negative (Negative) 12/06/22 Urine Nitrite Negative (Negative) 12/06/22 Urine Bilirubin Negative (Negative) 12/06/22 Urine Urobilinogen Negative (Negative) 12/06/22 Urine Leukocyte Esterase Negative (Negative) 12/06/22 Blood Type O Positive 12/06/22 Antibody Screen NEGATIVE 12/06/22 Testing Electrocardiogram Date: 12/06/22 NSR at 74bpm. LBBB. No significant change compared to 12/18/2019 per category development manager review. Chest X-Ray Date: 12/06/22 FINDINGS: PA and lateral chest radiographs are compared to study dated 12/18/2019. The cardiomediastinal silhouette is unremarkable. The lungs and pleural spaces are clear. There is no pneumothorax. The bony thorax appears intact. Fusion hardware is noted in the lower cervical spine. Cholecystectomy clips are seen in the right upper quadrant. IMPRESSION: No active disease in the chest. Echocardiogram Date: 10/22/19 EF: 67% LV Function: normal RWMA: + none Other Findings: + LVH (Mild/concentric) Valvular Disease: + no significant valvular disease Abnormal septal motion from conduction delay. Atrial septum hypermobile. Appears intact. Grade 1 diastolic dysfunction Stress Test Date: 08/09/18 Resting EF: 55% Resting LV Function: normal Resting RWMA: + none Stress EKG nondiagnostic for ischemia due to underlying left bundle branch block. Negative stress echo for ischemia 94% MPHR. Below average exercise tolerance for age and gender, 85% of predicted, achieving 7.0 METS. Resting echo shows abnormal septal motion consistent with left bundle branch block. Other Testing CT Sinuses (10/07/22) Mild sinus mucosal thickening, as described above. No CT evidence for acute sinusitis. Narrowed but patent major drainage pathways, as above. Mild rightward deviation of the nasal septum. COVID-19 Risk Screen Screening Information COVID-19 Screen Date: 12/06/22 Exposure 21 Days Family/Household +COVID Last 21 Days: No Exposure 10 Days Any COVID Exposure Last 10 Days: No Symptoms Last 10 Days Experienced COVID Sx Last 10 Days: No + COVID 0-90 Days COVID + in Last 0-90 Days: No
[~2023-01-06 09:32] MED LIST changes: -CEFAZOLIN 2000MG 2,000 MG/15 ML SYR IV SCH; +GABAPENTIN 600 MG DOSE PO SCH; -GABAPENTIN 900 MG DOSE PO SCH; +ceFAZolin 2000MG 2,000 MG/15 ML SYR IV SCH
[2023-01-06] MEDS ORDERED: PROMETHAZINE HCL 6.25 MG in SODIUM CHLORIDE 0.9% 50 ML IV PRN (10:07)
[2023-01-06] MEDS ORDERED: ATROPINE SULFATE 0.1 MG/ML 10ML SYR IV PRN (10:07)
[2023-01-06] MEDS ORDERED: ePHEDrine sulfate 50 MG/ML AMP IV PRN (10:07)
[2023-01-06] MEDS ORDERED: ONDANSETRON INJ 2 MG/ML 2 ML VIAL IV PRN ×2 (10:07→16:22)
[2023-01-06] MEDS ORDERED: HYDROmorphone INJ 2 MG/ML SYR/VIAL IV PRN (10:07)
[2023-01-06] MEDS ORDERED: MIDAZOLAM HCL 1 MG/ML 2ML VIAL ONE (10:25)
[2023-01-06] MEDS ORDERED: PROPOFOL IV EMULSION 10 MG/ML 20 ML VIAL IV ONE (10:25)
[2023-01-06] MEDS ORDERED: LIDOCAINE 2% MPF LOCAL 5 ML VIAL INFIL ONE (10:25)
[2023-01-06] MEDS ORDERED: KETAMINE 50 MG/5 ML SYRINGE ONE (10:25)
[2023-01-06] MEDS ORDERED: DEXAMETHASONE SOD INJ 4 MG/ML VIAL ONE (10:25)
[2023-01-06] MEDS ORDERED: fentaNYL citrate PF 100 MCG/2 ML VIAL ONE (10:25)
[2023-01-06] MEDS ORDERED: ONDANSETRON INJ 2 MG/ML 2 ML VIAL ONE (10:25)
[2023-01-06] MEDS ORDERED: ROCURONIUM BROMIDE 10 MG/ML 5 ML VIAL IV ONE (10:25)
[2023-01-06] MEDS ORDERED: HYDROmorphone INJ 2 MG/ML SYR/VIAL ONE (10:25)
[2023-01-06] MEDS ORDERED: SODIUM CHLORIDE 0.9% PF INJ 10 ML VIAL ONE (10:35)
[2023-01-06 10:43] LABS: Pregnancy Test, Serum Negative (Negative)
--- NOTE | 2023-01-06 11:06 | History & Physical Bridge Note ---
Date of Service January 06, 2023 History & Physical Bridge Note I have examined the patient, reviewed the History & Physical and in the interval since the performance of the History & Physical I have noted the following changes of clinical significance: no changes noted
--- NOTE | 2023-01-06 11:08 | History & Physical Report ---
Date of Service January 06, 2023 Assessment & Plan (1) Neurogenic claudication due to lumbar spinal stenosis: Plan: L3-L4 decompression, L3-S1 fusion, L4-S1 hardware removal History of Present Illness Chief Complaint: Back and leg pain Primary Care Provider: VALENCIA Salinas This is a 57-year-old female known to me the presents with chronic persistent back and leg pain after failing course of nonoperative care she is here for surgical intervention. Allergies Allergy/AdvReac Type Severity Reaction Status Date / Time No Known Allergies Allergy Mild Verified 01/06/23 10:20 Home Medications Medication Instructions Recorded Confirmed Type albuterol sulfate 90 mcg/actuation 2 puffs inhalation Q6H PRN ASTHMA 09/19/19 01/06/23 History aerosol inhaler (Ventolin HFA) atorvastatin 40 mg tablet (Lipitor) 40 mg PO QAM 09/19/19 01/06/23 History citalopram 40 mg tablet 40 mg PO QAM 09/19/19 01/06/23 History lisinopril 2.5 mg tablet 2.5 mg PO QAM 09/19/19 01/06/23 History bupropion HCl 100 mg tablet,12 hr 100 mg PO QAM 12/23/19 01/06/23 History sustained-release diltiazem HCl 120 mg 120 mg PO QAM 09/25/20 01/06/23 History capsule,extended release 12 hr budesonide-formoterol HFA 80 2 puff inhalation BID PRN Wheezing 11/25/22 01/06/23 History mcg-4.5 mcg/actuation aerosol inhaler (Symbicort) Past Med/Surg History Medical History Anxiety Chronic rhinitis DDD (degenerative disc disease), lumbar Depression History of cellulitis Strep A (seen at [facility] 2006), sent to [facility] for debridement, no recent issues Hyperlipidemia Hypertension Left bundle branch block Follows with Dr. Bruno (cardio) Has had subsequent negative stress test in 2018 for LBBB evaluation Mild intermittent asthma Morbid obesity Seasonal allergies Spinal stenosis Surgical History H/O laparoscopy History of arthroscopy of right shoulder History of carpal tunnel release History of cholecystectomy History of fusion of cervical spine C4-C5, good ROM per pt History of lumbar fusion L4-S1 decompression/fusion (01/01/20): Grade view 1, Stevens #2, ETT 7.5 at [facility]. No issues noted per post-op anesthesia progress note. History of surgery on arm Debridement (for cellulitis) Hx of colonoscopy Hx of decompression of ulnar nerve Right Hx of myringotomy S/P foot surgery, right Family History Mother Hypertension Father Dementia Grandmother Cancer Grandfather (Paternal) Heart disease Social History Smoking Status: Never smoker Second Hand Exposure: No; Do You Dip or Chew Tobacco: No; Hx Alcohol Use: No Hx Substance Use: No Preferred Language: Latvian Communication Ability: Effective Manufacturing Lab Technician Required: No Beliefs That Will Affect Care: None marital status: Current Living Situation: Family Other Information That Helps Us Care for You: No Feels Safe at Home: Yes Safety Concerns: Feels Safe At This Time Assistive Devices: Glasses Physical Exam Physical Exam: Patient is alert and oriented Heart regular rhythm Lungs clear Results & Data Results & Data ([facility]) Vital Signs (Past 12 Hours) Vital Signs Temp Pulse Resp BP Pulse Ox O2 Del Method 01/06/23 10:12 36.4 C L 81 20 159/86 H 97 Room Air
[2023-01-06] MEDS ORDERED: BUPIVACAINE/EPINEPHRINE 0.25% 1:200,000 30 ML VIAL ONE (11:38)
[2023-01-06] MEDS ORDERED: ceFAZolin 330 MG/ML 1 GM VIAL ONE (11:38)
[2023-01-06] MEDS ORDERED: FLOSEAL HEMOSTATIC MATRIX 10ML TOP ONE (12:46)
[2023-01-06] MEDS ORDERED: ALBUMIN HUMAN 5% 12.5 GM/250 ML VIAL IV ONE (12:50)
[2023-01-06] MEDS ORDERED: PHENYLEPHRINE HCL 10 MG/ML VIAL ONE (13:06)
[2023-01-06] MEDS ORDERED: ePHEDrine sulfate 50 MG/ML AMP ONE (13:12)
[2023-01-06] MEDS ORDERED: SUGAMMADEX SODIUM 200 MG/2 ML VIAL IV ONE (13:52)
--- NOTE | 2023-01-06 14:16 | Operative Report ---
Post Operative Report Pre & Post Diagnosis Operation Date: 01/06/23 11:25 Pre-Op Diagnosis: Lumbar disc herniation with radiculopathy Post-Op Diagnosis: Same I identified the patient and participated in the time-out.: Yes Procedure Operation Date: 01/06/23 11:25 Actual Procedures #1 removal of posterior instrumentation L4-S1. #2 exploration of fusion L4-S1. #3 lumbar decompression bilateral medial facetectomies foraminotomies L2-L3 L3- L4. #4 posterior spinal fusion L3-L4. #5 placement posterior instrumentation L3-S1. #6 interbody fusion L3-L4. #7 placement of Spira 10 x 22 mm cage at L3- L4. #8 placement locally harvested morselized autograft and posterior gutters. #9 placement I factor combined with V toss in the interbody space and posterior lateral gutters. Surgeon Lenin Cedillo, Program Trainer None Estimated Blood Loss 200 Findings See Below The patient is 5 foot 2 weighing over 97 kg with a BMI in excess of 39. Patient's body habitus did contribute to significant technical difficulty required deepest retractors longer instruments in order to perform her procedure. This had at least 50% increased operative time. Specimens None Indications This is a 57-year-old female who presents above-mentioned diagnosis after failing an extensive course of nonoperative care she is here for surgical invention. Description of Procedure Patient was met with identified informed consent obtained. Patient was then taken to the operative suite underwent a patient placed in a prone position on Alfonso table top Norberto frame. All bony promises well-padded eyes inspected to ensure no external pressure placed upon the. This point the lumbar spine was prepped and draped in normal sterile fashion. Sharp dissection with the assistance of Bovie cautery was performed down to and exposing the lamina transverse processes of L3 and instrumentation at L4-L5 and S1 levels bilaterally. Then proceeded to move the hardware bilaterally explore the fusion mass noting it to be mature and intact. I then performed a complete laminectomy of L3 partial laminectomy of L2 including bilateral medial facetectomies and foraminotomies addressing severe spinal stenosis as well as a massive disc herniation L3-L4 on the right with caudal migration. After complete decompression pedicle screws were placed at L3-L4 and S1 levels bilaterally with assistance of fluoroscopy and properly sized kendra placed. By way of a trans foraminal approach on the right a complete discectomy of L3-L4 was performed endplates curetted to subcortically bone and a 10 x 22 mm Spira cage with I factor tapped in position. The rods then locked in final position bilaterally. The transverse processes of L3 and L4 burred to subcortically bone. I factor amount of the test and locally harvested morselized autograft was placed in the posterior gutters. 15 round JENN drain inserted. The incision was then closed with 1 Vicryl the fascia 2-0 Vicryl subcutaneously and 4 Monocryl for final skin closure. Steri-Strips and sterile dressings placed. Patient waken taken to PAC U in stable condition. Please note spinal cord monitoring was utilized at the procedure no changes noted. I attest to the content of the Intraoperative Record and any orders documented therein. Any exceptions are noted below.
[2023-01-06] MEDS ORDERED: ALBUTEROL HFA 8 GM INHALER INH ONE (14:21)
--- NOTE | 2023-01-06 14:50 | Fluoroscopy Report ---
FL lumbar spine 2-3V CLINICAL HISTORY: L4-S1 RH/L3-S1 DFI TECHNIQUE: 2 views were obtained with the C-arm in the OR with the above procedure. Total fluoroscopy time was 15.1 seconds. Radiation dose was 15.09 mGy. Comparison: Comparison is made to lumbar spine fluoroscopy 01/01/2020 FINDINGS/IMPRESSION: Intraoperative images were obtained of L3-S1 discectomy and fusion. Please correlate with intraoperative fluoroscopy and operative report. ACT 112: Negative or not required by law. Electronically signed by: Elder Sheridan M.D. 01/06/2023 2:49 PM
[2023-01-06] MEDS: fentaNYL citrate PF 100 MCG/2 ML VIAL IV PRN ×3 (15:04→15:20)
--- NOTE | 2023-01-06 15:37 | Anesthesiology Progress Note ---
Date of Service January 06, 2023 Anesthesia Post Procedure Vital Signs Vital Signs: Temp Pulse Pulse Resp BP Pulse Ox O2 Del Method 01/06/23 15:20 91 H 12 133/82 96 Nasal Cannula 01/06/23 15:10 93 H 12 127/75 96 Oxymask 01/06/23 15:00 89 12 111/80 98 Oxymask 01/06/23 14:50 92 H 21 127/73 100 Oxymask 01/06/23 14:40 90 12 135/79 94 Oxymask 01/06/23 14:34 36.2 C L 95 H 12 139/83 94 Oxymask 01/06/23 10:12 36.4 C L 81 20 159/86 H 97 Room Air O2 Flow Rate 01/06/23 15:20 3 01/06/23 15:10 5 01/06/23 15:00 9 01/06/23 14:50 9 01/06/23 14:40 15 01/06/23 14:34 15 01/06/23 10:12 Pain Intensity Bilateral Upper Back: Pain Intensity: 5 Back: Pain Intensity: 0 Right Hip: Pain Intensity: 9 Transfer of Care Handoff Completed per policy Notes Mental Status: alert / awake / arousable and participated in evaluation Patient Amnestic to Procedure: Yes Nausea / Vomiting: adequately controlled Pain: adequately controlled Airway Patency, RR, SpO2: stable & adequate BP & HR: stable & adequate Hydration State: stable & adequate Anesthetic Complications: no major complications apparent and Pt Satisfied with anesthetic care
[2023-01-06] MEDS ORDERED: METOCLOPRAMIDE HCL INJ 5 MG/ML 2 ML VIAL IV PRN (16:22)
[2023-01-06] MEDS ORDERED: ALUMINUM/MAGNESIUM SUSP 30 ML UDC PO PRN (16:22)
[2023-01-06] MEDS ORDERED: LORazepam 0.5 MG TAB PO PRN (16:22)
[2023-01-06] MEDS ORDERED: ACETAMINOPHEN 500 MG TAB PO PRN (16:22)
[2023-01-06] MEDS ORDERED: ACETAMINOPHEN 1,000 MG/100 ML VIAL IV PRN (16:22)
[2023-01-06] MEDS ORDERED: LORazepam 2 MG/1 ML VIAL IV PRN (16:22)
[2023-01-06] MEDS ORDERED: DO NOT ADMINISTER PNEUMOCOCCAL VACCINE PRN (16:22)
[2023-01-06] MEDS ORDERED: diphenhydrAMINE Capsule 25 MG CAP PO PRN (16:22)
[2023-01-06] MEDS ORDERED: FAMOTIDINE 20 MG TAB PO PRN (16:22)
[2023-01-06] MEDS ORDERED: MAGNESIUM HYDROXIDE SUSP 30 ML UDC PO PRN (16:22)
[2023-01-06] MEDS ORDERED: NALOXONE HCL 0.4 MG/1 ML VIAL/CARP IV PRN (16:22)
[2023-01-06] MEDS ORDERED: PROMETHAZINE HCL 12.5 MG in SODIUM CHLORIDE 0.9% 50 ML IV PRN (16:22)
[2023-01-06] MEDS ORDERED: hydrOXYzine HCl 25 MG TAB PO PRN (16:22)
[2023-01-06] MEDS ORDERED: ONDANSETRON 4 MG OD TAB PO PRN (16:22)
[2023-01-06] MEDS ORDERED: SOD PHOSPHATE/SOD BIPHOSPHATE ENEMA 132 ML BTL PR PRN (16:22)
[2023-01-06] MEDS ORDERED: bisacodyL 10 MG SUPP PR PRN (16:22)
[2023-01-06] MEDS ORDERED: DO NOT ADMINISTER FLU VACCINE PRN (16:22)
[2023-01-06] MEDS: LACTATED RINGER'S 1,000 ML IV SCH (16:49)
[2023-01-06] MEDS: oxyCODONE HCL IR 5 MG TAB (IMMEDIATE RELEASE) PO PRN (16:49)
[2023-01-06] MEDS: traMADol HCL 50 MG TABLET PO PRN ×2 (18:09→23:04)
--- NOTE | 2023-01-06 19:09 | Hospitalist Consultation ---
Date of Consultation January 06, 2023 Assessment & Plan (1) Neurogenic claudication due to lumbar spinal stenosis: Patient is a 57 yo female with PMHx of mild intermittent asthma, depression, hyperlipidemia, HTN admitted to the hospital for surgical intervention on 01/06/23 secondary to neurogenic claudication due to lumbar spinal stenosis with Dr. Cedillo. s/p L2-4 decompression, L3-S1 fusion, L4-S1 hardware removal - Patient is POD#0 - Analgesia/management per primary surgical team Hypertension - Patient reports that this is well controlled - Continue home lisinopril and diltiazem Hyperlipidemia - Continue home statin Depression - Continue home bupropion and celexa Mild Intermittent Asthma - This has been well controlled. No recent exacerbations. - Patient has not required use of her inhalers in > 6 months - Can use of Symbicort and albuterol prn (2) Mild intermittent asthma: (3) Depression: (4) Hypercholesteremia: (5) Left bundle branch block: Supervising Physician Co-Signing Physician Notes Patient seen and examined, chart reviewed, case discussed with Claudine Valdez DO and I agree with the assessment and plan as above except as otherwise noted Labs and images reviewed 57-year-old female with past medical history of mild intermittent asthma well- controlled, depression, hyperlipidemia, hypertension who underwent hardware removal and L3-L4 decompression, L3-S1 fusion for lumbar spinal stenosis. Doing well postop.. Sensation in lower extremities is intact to soft touch, ankle dorsiflexion/plantarflexion is intact. Blood pressure is normal, slightly tachycardic on exam. Heart rate is regular. Lungs are clear, no wheezing. Continue home inhalers for asthma, use albuterol as needed. JENN drain is intact with about 75 cc of serosanguineous material. Surgical site with dressing C/D/I . Patient is having some postoperative pain in her surgical site, but reports the pain and neuropathy in her left leg and back is 90% improved. Slight tachycardia improving after fluids, is no longer on oxygen. Continue incentive spirometry. Encourage oral fluids. CBC/BMP in the morning. Agree with management above. History of Present Illness Attending Physician: Lenin Cedillo DO History of Present Illness Patient is a 57 yo female with PMHx of mild intermittent asthma, depression, hyperlipidemia, HTN admitted to the hospital for surgical intervention secondary to neurogenic claudication due to lumbar spinal stenosis with Dr. Cedillo. She is POD#0 L4-S1 hardware removal, L3-4 decompression, and L3-S1 fusion. Hospital team was consulted for medical management of patient's chronic medical conditions. Patient reports that her chronic medical conditions are well controlled. No recent asthma exacerbation; PFTs completed within the past year were reportedly unremarkable. She has not required use of Symbicort or albuterol in > 6 months. Aside from fatigue and mild post-op pain that is well controlled with analgesics, patient with no acute complaints or concerns. She is tolerating po intake post-op. Denies recent illness. Denies fever, chills, CP, SOB, abd pain, nausea, vomiting, diarrhea, constipation, lightheadedness, dizziness, numbness, or tingling. Allergies Allergy/AdvReac Type Severity Reaction Status Date / Time No Known Allergies Allergy Mild Verified 01/06/23 10:20 Home Medications Medication Instructions Recorded Confirmed Type albuterol sulfate 90 mcg/actuation 2 puffs inhalation Q6H PRN ASTHMA 09/19/19 01/06/23 History aerosol inhaler (Ventolin HFA) atorvastatin 40 mg tablet (Lipitor) 40 mg PO QAM 09/19/19 01/06/23 History citalopram 40 mg tablet 40 mg PO QAM 09/19/19 01/06/23 History lisinopril 2.5 mg tablet 2.5 mg PO QAM 09/19/19 01/06/23 History bupropion HCl 100 mg tablet,12 hr 100 mg PO QAM 12/23/19 01/06/23 History sustained-release diltiazem HCl 120 mg 120 mg PO QAM 09/25/20 01/06/23 History capsule,extended release 12 hr budesonide-formoterol HFA 80 2 puff inhalation BID PRN Wheezing 11/25/22 01/06/23 History mcg-4.5 mcg/actuation aerosol inhaler (Symbicort) Patient History Medical History Anxiety Chronic rhinitis DDD (degenerative disc disease), lumbar Depression History of cellulitis Strep A (seen at [facility] 2006), sent to [facility] for debridement, no recent issues Hyperlipidemia Hypertension Left bundle branch block Follows with Dr. Bruno (cardio) Has had subsequent negative stress test in 2018 for LBBB evaluation Mild intermittent asthma Morbid obesity Seasonal allergies Spinal stenosis Surgical History H/O laparoscopy History of arthroscopy of right shoulder History of carpal tunnel release History of cholecystectomy History of fusion of cervical spine C4-C5, good ROM per pt History of lumbar fusion L4-S1 decompression/fusion (01/01/20): Grade view 1, Stevens #2, ETT 7.5 at [facility]. No issues noted per post-op anesthesia progress note. History of surgery on arm Debridement (for cellulitis) Hx of colonoscopy Hx of decompression of ulnar nerve Right Hx of myringotomy S/P foot surgery, right Family History Mother Hypertension Father Dementia Grandmother Cancer Grandfather (Paternal) Heart disease Social History Smoking Status: Never smoker Second Hand Exposure: No; Do You Dip or Chew Tobacco: No; Hx Alcohol Use: No Hx Substance Use: No Preferred Language: French Communication Ability: Effective Doctor Of Audiology Required: No Beliefs That Will Affect Care: None marital status: Current Living Situation: Family Other Information That Helps Us Care for You: No Feels Safe at Home: Yes Safety Concerns: Feels Safe At This Time Assistive Devices: Glasses Review of Systems Review of Systems: See HPI Physical Exam Physical Exam: GENERAL: Patient resting comfortably in bed in no acute distress. Well developed and well nourished. Vital signs reviewed. EYES: Anicteric sclerae. HENT: Moist mucous membranes. RESPIRATORY: Anterior and lateral lung beal auscultated and are clear to auscultation bilaterally. No wheezing, rales, or rhonchi. CARDIOVASCULAR: Regular rate and rhythm. No murmurs. No JVD. ABDOMEN: Soft, non-tender and non-distended. Normal bowel sounds. EXTREMITIES: SCDs in place bilaterally. 5/5 strength to BUE and BLE. SKIN: Warm, dry. NEUROLOGIC: A/O x3. Normal speech. No focal neurological deficits. PSYCHIATRIC: Cooperative. Appropriate mood and affect. Results & Data Results & Data ([facility]) Vital Signs (Past 12 Hours) Vital Signs Temp Pulse Pulse Resp BP Pulse Ox O2 Del Method 01/06/23 18:00 106 H 16 119/74 94 Nasal Cannula 01/06/23 17:19 102 H 16 119/77 97 Nasal Cannula 01/06/23 16:35 99 H 16 117/75 94 Nasal Cannula 01/06/23 16:22 Nasal Cannula 01/06/23 16:05 36.7 C 100 H 12 126/80 97 Nasal Cannula 01/06/23 15:50 100 H 14 134/83 95 Nasal Cannula 01/06/23 15:40 95 H 13 141/87 H 99 Nasal Cannula 01/06/23 15:30 36.5 C 94 H 12 124/86 100 Nasal Cannula 01/06/23 15:20 91 H 12 133/82 96 Nasal Cannula 01/06/23 15:10 93 H 12 127/75 96 Oxymask 01/06/23 15:00 89 12 111/80 98 Oxymask 01/06/23 14:50 92 H 21 127/73 100 Oxymask 01/06/23 14:40 90 12 135/79 94 Oxymask 01/06/23 14:34 36.2 C L 95 H 12 139/83 94 Oxymask 01/06/23 10:12 36.4 C L 81 20 159/86 H 97 Room Air O2 Flow Rate 01/06/23 18:00 2 01/06/23 17:19 2 01/06/23 16:35 2 01/06/23 16:22 2 01/06/23 16:05 2 01/06/23 15:50 2 01/06/23 15:40 2 01/06/23 15:30 3 01/06/23 15:20 3 01/06/23 15:10 5 01/06/23 15:00 9 01/06/23 14:50 9 01/06/23 14:40 15 01/06/23 14:34 15 01/06/23 10:12 Laboratory Results 01/06/23 01/06/23 01/06/23 Range/Units 09:59 09:59 09:55 HCG, Qual Negative (Negative) SARS-CoV-2, RNA, NAAT NEGATIVE (NEGATIVE) Blood Type O Positive Antibody Screen NEGATIVE Crossmatch See Detail
[2023-01-06] MEDS: HYDROmorphone INJ 0.5 MG/0.5 ML SYR IV PRN (19:17)
[2023-01-06] MEDS: ceFAZolin 2000MG 2,000 MG/15 ML SYR IV SCH (20:26)
[2023-01-06] MEDS: DOCUSATE SODIUM/SENNA 50/8.6MG TAB PO SCH (20:26)
[2023-01-07] MEDS: LACTATED RINGER'S 1,000 ML IV SCH (00:05)
[2023-01-07] MEDS: oxyCODONE HCL IR 5 MG TAB (IMMEDIATE RELEASE) PO PRN ×4 (02:41→19:17)
[2023-01-07] MEDS: ceFAZolin 2000MG 2,000 MG/15 ML SYR IV SCH (04:42)
[2023-01-07] MEDS: HYDROmorphone INJ 0.5 MG/0.5 ML SYR IV PRN (04:42)
[2023-01-07] MEDS: POLYETHYLENE (MIRALAX) 17 GM PACK PO SCH ×3 (04:55→17:27)
[2023-01-07] MEDS: traMADol HCL 50 MG TABLET PO PRN ×3 (06:16→15:53)
[2023-01-07 06:40] LABS: Basophils # (auto) 0.01 K/uL (0-0.2); Basophils % (auto) 0.1 %; Hematocrit (blood only) 31.2 % (37.0-47.0); Hemoglobin 10.8 g/dl (12.0-16.0); Immature Granulocytes # (auto) 0.07 K/uL (0.01-0.20); Immature Granulocytes % (auto) 0.6 %; Lymphocytes # (auto) 0.69 K/uL (1.2-3.4); Mean Corpuscular Hemoglobin 30.3 pg (25.0-34.0); Mean Corpuscular Hgb Conc 34.6 g/dL (32.0-36.0); Mean Corpuscular Volume 87.4 fL (80.0-100.0); Mean Platelet Volume 9.9 fL (9.4-12.4); Monocytes # (auto) 0.61 K/uL (0.11-0.59); Monocytes % (auto) 5.3 %; Neutrophils # (auto) 10.21 K/uL (1.40-6.50); Platelet Count 214 K/uL (130-400); RDW Coefficient of Variation 11.8 % (11.5-14.5); Red Blood Count 3.57 M/uL (4.20-5.40); White Blood Count 11.59 K/ul (4.8-10.8)
--- NOTE | 2023-01-07 08:17 | Orthopedic Progress Note ---
Date of Service January 07, 2023 Assessment & Plan (1) Neurogenic claudication due to lumbar spinal stenosis: Plan: This time initiate physical therapy monitor JENN operatively discharge home next few days. Admission and Anticipated Discharge Date Admission Date: January 06, 2023 Subjective Patient's back pain is controlled. Leg pain improved. Physical Exam Physical Exam: Patient is in the chair at the bedside. Is good strength testing. Appears comfortable. Results & Data ([facility]) Vital Signs (Past 12 Hours) Vital Signs Temp Pulse Resp BP Pulse Ox O2 Del Method O2 Flow Rate 01/07/23 07:42 36.7 C 90 16 112/71 94 Room Air 01/07/23 03:15 95 Room Air 01/07/23 02:44 36.9 C 88 18 131/77 97 Nasal Cannula 2 01/06/23 21:52 36.7 C 97 H 18 95 Nasal Cannula 2 01/06/23 20:35 94 Nasal Cannula 2
[2023-01-07] MEDS: ATORVASTATIN 40 MG TAB PO SCH (08:43)
[2023-01-07] MEDS: dexAMETHasone 8 MG in SYRINGE 0 ML IV SCH (08:43)
[2023-01-07] MEDS: dilTIAZem HCL 120 MG CAPCR PO SCH (08:43)
[2023-01-07] MEDS: buPROPion SR 100 MG TABCR PO SCH (08:43)
[2023-01-07] MEDS: CITALOPRAM 40 MG TAB PO SCH (08:43)
[2023-01-07] MEDS: lisinopril 2.5 MG TAB PO SCH (08:44)
[2023-01-07 09:01] LABS: Calcium 9.2 mg/dl (8.5-10.1); Potassium 4.5 mmol/L (3.5-5.1)
[2023-01-07 09:07] LABS: BUN Creatinine Ratio 17.7 (10-20); Creatinine Clr Calc Pharmacy 61.4 ml/min; Est GFR (African American) 63.4 ml/min; Est GFR (Non-African American) 54.7 ml/min
--- NOTE | 2023-01-07 19:53 | Hospitalist Progress Note ---
Date of Service January 07, 2023 Assessment & Plan (1) Neurogenic claudication due to lumbar spinal stenosis: Plan: Patient is a 57 yo female with PMHx of mild intermittent asthma, depression, hyperlipidemia, HTN admitted to the hospital for surgical intervention on 01/06/23 secondary to neurogenic claudication due to lumbar spinal stenosis with Dr. Cedillo. s/p L2-4 decompression, L3-S1 fusion, L4-S1 hardware removal - Patient is POD#0 - Analgesia/management per primary surgical team Hypertension - Patient reports that this is well controlled - Continue home lisinopril and diltiazem Hyperlipidemia - Continue home statin Depression - Continue home bupropion and celexa Mild Intermittent Asthma - This has been well controlled. No recent exacerbations. - Patient has not required use of her inhalers in > 6 months - Can use of Symbicort and albuterol prn (2) Mild intermittent asthma: (3) Depression: (4) Hypercholesteremia: (5) Left bundle branch block: Admission and Anticipated Discharge Date Admission Date: January 06, 2023 Subjective Patient reports improvement in her leg pain Denies chest pain or shortness of breath Physical Exam Physical Exam: Head and ENT no thyroid enlargement trachea midline Cardiovascular S1-S2 are normal no S3 Lungs bilateral air entry fair no wheezing Abdomen soft nondistended positive bowel sounds no rebound tenderness Extremity shows trace edema Neurologically no focal deficits Skin shows no rash no cyanosis Results & Data Results & Data ([facility]) Vital Signs (Past 12 Hours) Vital Signs Temp Pulse Resp BP Pulse Ox O2 Del Method 01/07/23 15:00 36.8 C 103 H 16 136/73 96 Room Air 01/07/23 11:28 36.6 C 89 18 125/73 95 Room Air PG Care Time/CCT Total # of Minutes Spent Total Time Spent with Patient: Total time spent is greater than 50% in coordination of care (as documented) at patient's floor/unit and/or counseling patient: Coding Level of Care Code 01907 SUB INP/OBS CARE 11/30MIN Diagnoses Neurogenic claudication due to lumbar spinal stenosis M48.062 Mild intermittent asthma J45.20 Depression F32.9 Hypercholesteremia E78.00 Left bundle branch block I44.7
[2023-01-07] MEDS: DOCUSATE SODIUM/SENNA 50/8.6MG TAB PO SCH (20:14)
[2023-01-08] MEDS: POLYETHYLENE (MIRALAX) 17 GM PACK PO SCH ×4 (00:26→17:30)
[2023-01-08] MEDS: traMADol HCL 50 MG TABLET PO PRN ×3 (02:06→13:46)
[2023-01-08] MEDS: oxyCODONE HCL IR 5 MG TAB (IMMEDIATE RELEASE) PO PRN ×3 (05:34→17:30)
[2023-01-08] MEDS: lisinopril 2.5 MG TAB PO SCH (08:31)
[2023-01-08] MEDS: dexAMETHasone 8 MG in SYRINGE 0 ML IV SCH (08:32)
[2023-01-08] MEDS: ATORVASTATIN 40 MG TAB PO SCH (08:32)
[2023-01-08] MEDS: dilTIAZem HCL 120 MG CAPCR PO SCH (08:32)
[2023-01-08] MEDS: CITALOPRAM 40 MG TAB PO SCH (08:32)
[2023-01-08] MEDS: buPROPion SR 100 MG TABCR PO SCH (08:32)
--- NOTE | 2023-01-08 10:08 | Orthopedic Progress Note ---
Date of Service January 08, 2023 Assessment & Plan (1) Neurogenic claudication due to lumbar spinal stenosis: Plan: This time we will continue physical therapy monitor JENN output and advance her bowel regiment. Hopefully discharge home tomorrow. Admission and Anticipated Discharge Date Admission Date: January 06, 2023 Subjective Patient still struggling with some back pain. She is tolerating physical therapy. Has not had a bowel movement yet. Physical Exam Physical Exam: On exam she is comfortable at this time. She is in bed. Is constricted testing. Results & Data ([facility]) Vital Signs (Past 12 Hours) Vital Signs Temp Pulse Resp BP Pulse Ox O2 Del Method 01/08/23 07:20 Room Air 01/08/23 07:23 36.7 C 69 16 133/75 98 Room Air
--- NOTE | 2023-01-08 17:50 | Hospitalist Progress Note ---
Date of Service January 08, 2023 Assessment & Plan (1) Neurogenic claudication due to lumbar spinal stenosis: Plan: Patient is a 57 yo female with PMHx of mild intermittent asthma, depression, hyperlipidemia, HTN admitted to the hospital for surgical intervention on 01/06/23 secondary to neurogenic claudication due to lumbar spinal stenosis with Dr. Cedillo. s/p L2-4 decompression, L3-S1 fusion, L4-S1 hardware removal - Patient is POD#0 - Analgesia/management per primary surgical team 01/08-continue physical therapy Pain control acceptable No evidence of acute exacerbation of asthma Hypertension - Patient reports that this is well controlled - Continue home lisinopril and diltiazem Hyperlipidemia - Continue home statin Depression - Continue home bupropion and celexa Mild Intermittent Asthma - This has been well controlled. No recent exacerbations. - Patient has not required use of her inhalers in > 6 months - Can use of Symbicort and albuterol prn No evidence of acute exacerbation (2) Mild intermittent asthma: (3) Depression: (4) Hypercholesteremia: (5) Left bundle branch block: Admission and Anticipated Discharge Date Admission Date: January 06, 2023 Subjective Patient reports slight improvement of back pain, tolerating physical therapy No acute chest pain or shortness of breath Physical Exam Physical Exam: Head and ENT no thyroid enlargement trachea midline Cardiovascular S1-S2 are normal no S3 Lungs bilateral air entry fair no wheezing Abdomen soft nondistended positive bowel sounds no rebound tenderness Extremity shows trace edema Neurologically no focal deficits Skin shows no rash no cyanosis Results & Data Results & Data ([facility]) Vital Signs (Past 12 Hours) Vital Signs Temp Pulse Resp BP Pulse Ox O2 Del Method 01/08/23 15:23 36.6 C 87 16 161/72 H 96 Room Air 01/08/23 07:20 Room Air 01/08/23 07:23 36.7 C 69 16 133/75 98 Room Air PG Care Time/CCT Total # of Minutes Spent Total Time Spent with Patient: Total time spent is greater than 50% in coordination of care (as documented) at patient's floor/unit and/or counseling patient: Coding Level of Care Code 53929 SUB INP/OBS CARE 25MIN Diagnoses Neurogenic claudication due to lumbar spinal stenosis M48.062 Mild intermittent asthma J45.20 Depression F32.9 Hypercholesteremia E78.00 Left bundle branch block I44.7
[2023-01-08] MEDS: DOCUSATE SODIUM/SENNA 50/8.6MG TAB PO SCH (20:00)
[2023-01-09] MEDS: traMADol HCL 50 MG TABLET PO PRN ×3 (01:20→12:59)
[2023-01-09] MEDS: POLYETHYLENE (MIRALAX) 17 GM PACK PO SCH ×2 (01:20→05:40)
--- NOTE | 2023-01-09 08:21 | Discharge Summary ---
Date of Service January 09, 2023 Admission HPI Per Admitting Provider This is a 57-year-old female known to me the presents with chronic persistent back and leg pain after failing course of nonoperative care she is here for surgical intervention. Principal Diagnosis Lumbar spinal stenosis with herniated nucleus pulposus and radiculopathy Discharge Data Allergies Allergy/AdvReac Type Severity Reaction Status Date / Time No Known Allergies Allergy Mild Verified 01/06/23 10:20 Consultations 01/06/23 16:22 Consult Hospitalist Routine Procedures Performed Operation Date: 01/06/23 11:25 Actual Procedures p L3-L4 Decompression, L3-S1 Fusion, Spinal Cord Monitoring(Not Applicable) - Lenin Cedillo DO s L4-S1 Hardware Removal, (Not Applicable) - Lenin Cedillo DO Ordered Studies 01/06/23 11:25 FL lumbar spine 2-3V Routine Hospital Course (1) Neurogenic claudication due to lumbar spinal stenosis: Patient went lumbar decompression fusion tolerated this well was taken orthopedic for postoperative. Postop day 1 she was up and ambulating progressed to postop day #2 on postop day #3 pain was well controlled JENN drain decreased appropriately. Excellent strength testing. Subsequent discharge home. Discharge orders and instructions found in chart for further review. Total Time Total Time Spent Total Time Spent (In Minutes): 20 minutes Discharge Plan Discharge Items Patient Disposition: Home - Self-Care Reason For Visit: Intervertebral Disc Disorders with Radiculopathy, Discharge Diagnosis: Lumbar disc herniation with radiculopathy Activity: As commented below Non-emergency contact: Primary Care Provider Call non-emergency contact if: you have any medication questions Follow-up/Referrals: Janel Benítez CRNP [Primary Care Provider] - Diet: Regular Addtl Attending Provider Instructions: ACTIVITY RECOMMENDATIONS: SELF CARE INSTRUCTIONS AFTER THORACIC/LUMBAR FUSIONS 1. You may walk to your tolerance. It is good exercise for your legs and back. Expect some back and intermittent leg aches and pains. 2. You may perform "counter-top" level activities (make a sandwich, amol with a project, etc.). 3. No bending or lifting of more than 10 pounds or back twisting of any nature (roll like a log when turning in bed). 4. You may ride in a car for 20-30 minutes at a time. No driving until after your first visit with your doctor. 5. Frequent changes of position and restricting sitting to 30 minutes at a time will help limit the amount of back spasms and stiffness you may experience. 6. You may discontinue the use of ambulatory aids (cane, crutches, etc.) once your strength and confidence allow. 7. You may induction coordination engineer the shower and let water strike your incision when you arrive home at least once daily. Do not take a tub bath, sit in a hot tub or go into a swimming pool until after your first recheck in the office. SPECIAL CARE INSTRUCTIONS: VERY IMPORTANT TO READ AND REVIEW A. Your surgical incision has been closed with a cosmetic suture under the skin that will dissolve in about 6 weeks. In 14 days, you can use a pair of clean scissors and cut the suture that is left outside of the skin at the ends of your incision. 1. The small skin tapes can be removed 7 days after surgery if they have not fallen off by that point. 2. You may keep the wound open to air as much as possible to promote healing after post-op day number 5 unless told otherwise by your doctor. 3. If you think the wound looks like it is becoming infected (redness or worsening drainage) and/or you are experiencing fever, chill or worsening back pain and muscle spasms, contact the office so that we may evaluate you as soon as possible. B. Complications are uncommon, but please contact us if you have any signs or symptoms of: 1. wound infection (fever higher than 102.5 degrees F, redness, separation of wound, drainage, or increasing pain from the incision) 2. blood clots in legs (pain, swelling, redness and warmth in legs) 3. urinary tract infection (fever higher than 102.5 degrees F, burning upon urination or increased frequency of urination) 4. nerve problems (inability to walk on your toes or heels, numbness, loss of bowel or bladder control) 5. any other symptoms that concern you C. Please call the office at if you have any concerns or questions about your operation or recovery. D. No smoking! Smoking drastically decreases the chance of a solid fusion. E. Do not take any anti-inflammatory medications (Indocin, Advil, Motrin, Aspirin, Naprosyn, etc.) as these may inhibit the chance of a solid fusion. Tylenol is okay to take for pain. MANAGING PAIN AFTER SPINAL SURGERY 1. Narcotic medication is intended for short-term use and will be provided for surgical pain. Surgical pain usually lasts for a period of 4-6 weeks. Narcotic medication includes Percocet, Vicodin, Darvocet, Tylenol #3 or Lortab. 2. Longer-term pain is more appropriately treated with non-narcotic medication such as Tylenol ES. 3. Muscle spasm is not appropriately treated with narcotics. Muscle relaxers such as Soma, Flexeril or Skelaxin can be used along with Tylenol ES. 4. Remember that we all live with some "aches and pains". This is not unusual or uncommon after an injury or as we get older. a. Back pain is expected and may include muscle spasms for 4 to 6 weeks after surgery. The pain should gradually improve. If the pain worsens for no apparent reason, please contact the office. b. Intermittent leg pain may also be experienced and should not be concerned about unless it worsens for no apparent reason. If so, please contact the office. 5. We will provide appropriate medication within the normal guidelines of their prescribed use. We will also be very cautious and aware of potential abuse and extended duration of patients' medication needs. a. Pain medications are for your comfort and to assist with sleep and rest so that the tissue can heal. They are not provided in order to return to normal activity and should not be used through the day. To do so or worsening pain at night can result from ongoing tissue damage and development of tolerance to the prescribed medicine. 6. Please allow 2-3 days to process refills. Prescriptions will not be mailed but must be picked up at the office. FOLLOW UP VISIT: Keep your scheduled follow-up appointment. Any questions, please call the office at . Pending Studies at Discharge: No Stand-Alone Forms: [employer], Smoking Cessation Medications and DC Order Prescriptions: New tramadol 50 mg tablet 50 mg PO Q6H PRN (Reason: pain, moderate) Qty: 30 0RF oxycodone 5 mg tablet 5 mg PO Q6H PRN (Reason: pain, severe) Qty: 30 0RF Continued citalopram 40 mg tablet 40 mg PO QAM atorvastatin [Lipitor] 40 mg tablet 40 mg PO QAM lisinopril 2.5 mg tablet 2.5 mg PO QAM albuterol sulfate [Ventolin HFA] 90 mcg/actuation HFA aerosol inhaler 2 puffs INH Q6H PRN (Reason: ASTHMA) diltiazem HCl 120 mg capsule,extended release 12 hr 120 mg PO QAM bupropion HCl 100 mg Tablet Sustained-Release 12 Hr 100 mg PO QAM budesonide-formoterol [Symbicort] 80-4.5 mcg/actuation HFA aerosol inhaler 2 puff inhalation BID PRN (Reason: Wheezing) Discharge Orders: Discharge Order (Routine); Ordered 01/09/23 Ordered By: Lenin Cedillo Admission Data Admit Date/Time: 01/06/23 14:19 Attending Provider: Lenin Cedillo Admit Provider: Lenin Cedillo Primary Care Provider: Janel Benítez Other Providers: Bucky Cruz ; Rahat Mckeon
[2023-01-09] MEDS: buPROPion SR 100 MG TABCR PO SCH (08:22)
[2023-01-09] MEDS: dilTIAZem HCL 120 MG CAPCR PO SCH (08:22)
[2023-01-09] MEDS: CITALOPRAM 40 MG TAB PO SCH (08:22)
[2023-01-09] MEDS: lisinopril 2.5 MG TAB PO SCH (08:22)
[2023-01-09] MEDS: dexAMETHasone 8 MG in SYRINGE 0 ML IV SCH (08:22)
[2023-01-09] MEDS: ATORVASTATIN 40 MG TAB PO SCH (08:22)
[2023-01-09] MEDS: oxyCODONE HCL IR 5 MG TAB (IMMEDIATE RELEASE) PO PRN (08:26)
--- NOTE | 2023-01-09 11:21 | Hospitalist Progress Note ---
Date of Service January 09, 2023 Assessment & Plan (1) Neurogenic claudication due to lumbar spinal stenosis: Plan: Patient is a 57 yo female with PMHx of mild intermittent asthma, depression, hyperlipidemia, HTN admitted to the hospital for surgical intervention on 01/06/23 secondary to neurogenic claudication due to lumbar spinal stenosis with Dr. Cedillo. s/p L2-4 decompression, L3-S1 fusion, L4-S1 hardware removal -Medically stable (2) Mild intermittent asthma: Plan: Stable. Respiratory treatments as needed (3) Depression: Plan: Stable. Continue current medication (4) Hypercholesteremia: Plan: Stable. Continue statin therapy (5) Left bundle branch block: Plan: Chronic. No intervention needed at this time Plan Medically stable. She will be discharged home today, January 09, per the primary service Admission and Anticipated Discharge Date Admission Date: January 06, 2023 Subjective The patient is alert and oriented and ambulating in the room at the time of my rounds. She is medically stable. She is being discharged to home by the primary service today, January 09 Review of Systems Review of Systems: Constitutional-no fever or chills ENT-no blurred vision, no double vision, no epistaxis, no sore throat Respiratory-no cough, no wheezing, no shortness of breath Cardiac-no palpitations, no chest pain, no syncope GI-no nausea, vomiting, diarrhea, melena, hematochezia -no urinary retention, no urinary incontinence, no dysuria, no hematuria Musculoskeletal-mild low back discomfort at surgical site as expected Skin-no bruising, no rashes, no pruritus Neuro-no isolated weakness, no paresthesia, no weakness Psych-no depression, no anxiety Physical Exam Physical Exam: General-alert and oriented x3, no fevers, no chills HEENT-head atraumatic and normocephalic, pupils equal and reactive to light, extraocular muscles intact Neck-no lymphadenopathy or thyromegaly, trachea midline Chest-clear to auscultation percussion. No rales wheezing or rhonchi Cardiac-regular rate and rhythm, normal S1 and S2 Abdomen-normal bowel sounds, nontender, no hepatosplenomegaly Extremities-no cyanosis, clubbing, or edema. Lumbar surgical site is unremarkable Neuro-cranial nerves II through XII intact, motor and sensory function within normal limits, strength symmetrical, no focal deficits Psych-normal affect, normal mood Results & Data Results & Data ([facility]) Vital Signs (Past 12 Hours) Vital Signs Temp Pulse Pulse Resp BP BP Pulse Ox 01/09/23 09:28 36.8 C 73 87 18 160/90 H 161/72 H 96 01/09/23 09:25 36.8 C 73 87 18 160/90 H 161/72 H 96 01/09/23 08:59 36.8 C 73 87 18 160/90 H 161/72 H 96 01/09/23 08:58 36.8 C 73 87 18 160/90 H 161/72 H 96 01/09/23 08:57 36.8 C 73 87 18 160/90 H 161/72 H 96 01/09/23 07:57 36.8 C 73 18 160/90 H 96 O2 Del Method 01/09/23 09:28 01/09/23 09:25 01/09/23 08:59 01/09/23 08:58 01/09/23 08:57 01/09/23 07:57 Room Air Laboratory Results 01/07/23 05:56 01/07/23 05:56 PG Care Time/CCT Total # of Minutes Spent Total Time Spent with Patient: Total time spent is greater than 50% in coordination of care (as documented) at patient's floor/unit and/or counseling patient: Coding Level of Care Code 63056 SUB INP/OBS CARE 2/35MIN Diagnoses Neurogenic claudication due to lumbar spinal stenosis M48.062 Mild intermittent asthma J45.20 Depression F32.9 Hypercholesteremia E78.00 Left bundle branch block I44.7
== END 2023-01-09 13:06 | disposition home or self-care (01) | DRG 455 ==
LOC: ASU 09:32 → 3N 14:19

== ENCOUNTER 2023-09-13 09:55 | Inpatient (IN) ==
--- NOTE | 2023-08-21 14:12 | PAT Medication Instructions ---
Medication Instructions Date of Service August 21, 2023 Home Medications albuterol sulfate 90 mcg/actuation aerosol inhaler (Ventolin HFA) 2 puffs inhalation Q6H PRN ASTHMA citalopram 40 mg tablet 40 mg PO QAM diltiazem HCl 120 mg capsule,extended release 12 hr 120 mg PO QAM budesonide-formoterol HFA 80 mcg-4.5 mcg/actuation aerosol inhaler (Symbicort) 2 puff inhalation BID PRN Wheezing atorvastatin 80 mg tablet 80 mg PO QAM bupropion HCl 150 mg tablet,12 hr sustained-release 150 mg PO QAM lisinopril 5 mg tablet 5 mg PO QAM DO NOT take the morning of surgery lisinopril 5 mg tablet 5 mg PO QAM Take morning of surgery With a small sip of water, OTHERWISE NOTHING TO EAT OR DRINK AFTER MIDNIGHT: albuterol sulfate 90 mcg/actuation aerosol inhaler (Ventolin HFA) 2 puffs inhalation Q6H PRN ASTHMA (use if needed; please bring with you to hospital day of surgery if possible) citalopram 40 mg tablet 40 mg PO QAM diltiazem HCl 120 mg capsule,extended release 12 hr 120 mg PO QAM budesonide-formoterol HFA 80 mcg-4.5 mcg/actuation aerosol inhaler (Symbicort) 2 puff inhalation BID PRN Wheezing (if needed) atorvastatin 80 mg tablet 80 mg PO QAM bupropion HCl 150 mg tablet,12 hr sustained-release 150 mg PO QAM Take evening before surgery albuterol sulfate 90 mcg/actuation aerosol inhaler (Ventolin HFA) 2 puffs inhalation Q6H PRN ASTHMA (if needed) budesonide-formoterol HFA 80 mcg-4.5 mcg/actuation aerosol inhaler (Symbicort) 2 puff inhalation BID PRN Wheezing (if needed) Other Notes If you have any questions please call us at [phone] or [phone] or [phone] or [phone]
--- NOTE | 2023-08-23 11:30 | Anesthesiology Consultation ---
Date of Service August 23, 2023 Assessment & Plan (1) Encounter for pre-operative examination: Chart Review Chart Review: Acceptable Risk for Surgery (pending PCP and cardio clearance ) and Patient seen in Pre Admission Testing - Awaiting PCP clearance 08/28/23 - Awaiting cardio clearance 07/2023 (Dr Bruno) - Check test AM DOS Per [facility] appt on 08/23/23, nasal congestion and cough x 1.5 weeks - possibly allergy related. No recent disease exposures. Preop Covid testing done at [facility] appt 08/23/23= negative L3-L4 decompression, L3-S1 fusion, L4-S1 removal of posterior instrumentation 01/06/2023 = done under [facility] with [facility]. History Surgery Operation Date: 09/13/23 10:05 Proposed Procedures p L2-L3 Decompression and Fusion, L3-S1 Hardware Removal - Lenin Cedillo, Height/Weight Height: 5 ft 2 in Weight: 101.2 kg Allergies Allergy/AdvReac Type Severity Reaction Status Date / Time No Known Allergies Allergy Mild Verified 08/16/23 12:19 Medications Home Medications Medication Instructions Recorded Confirmed Last Taken albuterol sulfate 90 mcg/actuation 2 puffs inhalation Q6H PRN ASTHMA 09/19/19 08/16/23 Unknown aerosol inhaler (Ventolin HFA) citalopram 40 mg tablet 40 mg PO QAM 09/19/19 08/16/23 01/06/23 06:00 diltiazem HCl 120 mg 120 mg PO QAM 09/25/20 08/16/23 01/06/23 06:00 capsule,extended release 12 hr budesonide-formoterol HFA 80 2 puff inhalation BID PRN Wheezing 11/25/22 08/16/23 Unknown mcg-4.5 mcg/actuation aerosol inhaler (Symbicort) atorvastatin 80 mg tablet 80 mg PO QAM 04/21/23 08/16/23 Unknown bupropion HCl 150 mg tablet,12 hr 150 mg PO QAM 04/21/23 08/16/23 Unknown sustained-release lisinopril 5 mg tablet 5 mg PO QAM 08/16/23 08/16/23 Unknown Past Medical History Medical History (Updated 08/23/23 @ 15:50 by Sherry Plascencia PA-C) Anxiety Chronic rhinitis DDD (degenerative disc disease), lumbar Depression History of cellulitis Strep A (seen at [facility] 2006), sent to [facility] for debridement, no recent issues Hyperlipidemia Hypertension Left bundle branch block Follows with Dr. Bruno (cardio) Has had subsequent negative stress test in 2018 for LBBB evaluation Mild intermittent asthma Stable and controlled, no exacerbations in last 12 months- albuterol inhaler use rare Morbid obesity Seasonal allergies Spinal stenosis Exercise / Class Metabolic Activity II 4-5 Yardwork/Stairs/Walk up hill (one flight of stairs - no chest pain or SOB ) Past Family History Family History Mother Hypertension Father Dementia Grandmother Cancer Grandfather (Paternal) Heart disease Other No family history of adverse response to anesthesia Past Surgical History Surgical History H/O laparoscopy History of arthroscopy of right shoulder History of carpal tunnel release bilateral History of cholecystectomy History of fusion of cervical spine C4-C5, good ROM per pt History of lumbar fusion L4-S1 decompression/fusion (01/01/20): Grade view 1, Stevens #2, ETT 7.5 at [facility]. No issues noted per post-op anesthesia progress note. History of lumbar spinal fusion 01/2023 @ [facility] Dr. Cedillo History of surgery on arm Debridement (for cellulitis) Hx of colonoscopy Hx of decompression of ulnar nerve Right Hx of myringotomy S/P foot surgery, right Past Anesthesia History No Hx of Anesthesia Complications and No Family Hx of Anesthesia Complications History of PONV No Hx of PONV and Hx of Motion Sickness Social History Smoking Status: Never smoker Do You Dip or Chew Tobacco: No Hx Alcohol Use: No Hx Substance Use: No substance use type: does not use Review of Systems - Nasal congestion and cough x 1.5 weeks - possibly allergy related - Hx of snoring - no hx of sleep study Patient denies chest pain, shortness of breath, dyspnea on exertion, reflux, wheezing, palpitations. No hx of seizures, stroke, VT. No hx of blood clots or blood transfusions Physical Exam Vital Signs VITALS BP 128/72 P 81 TEMP 98.3 SP02 95% RESP 16 Constitutional no acute distress ENMT Mouth: no TMJ clicking Thyromental Distance: > or= 3.5 Finger Breadths (3.5) Mallampati Class: II Mouth / Teeth: 1. Permanent implant Neck neck extension not limited Respiratory normal respiratory effort; no respiratory distress Auscultation: lungs clear to auscultation bilaterally and + diminished lung sounds (mildly throughout ); no wheezes Cardiovascular Rate/Rhythm: regular rate and regular rhythm Heart Sounds: no murmur Vessels: no carotid bruit Musculoskeletal Spine: no pain with cervical ROM Extremities: extremities normal to inspection Psychiatric Orientation: alert Lab Results Anesthesia Preop Results Results Anesthesia Widget: WBC 7.55 K/ul (4.8-10.8) 08/23/23 Hgb 13.1 g/dl (12.0-16.0) 08/23/23 Hct 37.3 % (37.0-47.0) 08/23/23 Plt 278 K/uL (130-400) 08/23/23 Na 137 mmol/L (136-145) 08/23/23 K 4.5 mmol/L (3.5-5.1) 08/23/23 Cl 103 mmol/L (98-107) 08/23/23 CO2 30 mmol/L (21-32) 08/23/23 BUN 15 mg/dl (6-23) 08/23/23 Creat 1.09 mg/dl (0.6-1.2) 08/23/23 Glucose Level 94 mg/dl (70-99(Fasting)) 08/23/23 PT 10.7 Seconds (9.0-12.0) 08/23/23 PTT 25.4 Seconds (21.0-31.0) 08/23/23 INR 1.0 (0.9-1.1) 08/23/23 Urine Color Yellow 08/23/23 Urine Appearance Clear (Clear) 08/23/23 Urine pH 6.5 (4.5-7.5) 08/23/23 Urine Specific [place] 1.006 (1.000-1.030) 08/23/23 Urine Protein Negative (Negative) 08/23/23 Urine Glucose (UA) Negative (Negative) 08/23/23 Urine Ketones Negative (Negative) 08/23/23 Urine Blood Negative (Negative) 08/23/23 Urine Nitrite Negative (Negative) 08/23/23 Urine Bilirubin Negative (Negative) 08/23/23 Urine Urobilinogen Negative (Negative) 08/23/23 Urine Leukocyte Esterase Negative (Negative) 08/23/23 Blood Type O Positive 08/23/23 Antibody Screen NEGATIVE 08/23/23 Testing Electrocardiogram Date: 12/06/22 NSR at 74bpm. LBBB. No significant change compared to 12/18/2019 per cell manager review. Chest X-Ray Date: 08/23/23 Findings: + NAD FINDINGS: Incidental note is made of postoperative findings within the spine and cholecystectomy clips. Lung volumes are normal. Lungs are clear. There is no pneumothorax or pleural effusion. Cardiac size is normal. Mediastinal contours are normal. There is no evidence for pulmonary edema. Echocardiogram Date: 07/26/22 EF: 65% LV Function: normal Other Findings: + LVH (Mild concentric LVH) Valvular Disease: + no significant valvular disease Small left ventricular size for BSA Normal LV size and systolic function with no regional wall motion abnormalities Septal motion consistent with left bundle branch block. Normal left atrial pressure. Normal RV size and function. Normal biatrial size Normal estimated PASP Compared to previous study performed 10/22/2019there is no change. Stress Test Date: 12/29/22 Myocardial perfusion imaging results: There is dense breast attenuation. Obesity. The study is of adequate quality for interpretation. Gated MPI demonstrates normal ejection fraction of 72%. There is isolated se ptal wall motion abnormality consistent with IVCD. There is a small to medium in size mild intensity fixed MPI defect involving the anteroseptal and apical myocardium. This is suggestive of attenuation artifact and/or infarct. There is no evidence of myocardial ischemia. This study is mildly abnormal. However, it is low risk for myocardial ischemia.
[~2023-09-13 09:55] MED LIST changes: +FAMOTIDINE/PF 20 MG/2 ML VIAL IV ONE; +LR 60ML/HR IV SCH
[2023-09-13] MEDS ORDERED: MIDAZOLAM HCL 1 MG/ML 2ML VIAL ONE (11:49)
[2023-09-13] MEDS ORDERED: fentaNYL citrate PF 100 MCG/2 ML VIAL ONE (11:49)
[2023-09-13] MEDS ORDERED: ONDANSETRON INJ 2 MG/ML 2 ML VIAL IV PRN ×2 (11:50→17:18)
[2023-09-13] MEDS ORDERED: PROMETHAZINE HCL 12.5 MG in SODIUM CHLORIDE 0.9% 50 ML IV PRN ×2 (11:50→17:18)
[2023-09-13] MEDS ORDERED: ATROPINE SULFATE 0.1 MG/ML 10ML SYR IV PRN (11:50)
[2023-09-13] MEDS ORDERED: HYDROmorphone INJ 1 MG/ML SYRINGE IV PRN (11:50)
[2023-09-13] MEDS ORDERED: LABETALOL HCL IV 5 MG/ML 20ML IV PRN (11:50)
[2023-09-13] MEDS ORDERED: LIDOCAINE 2% 2 ML VIAL/AMP(20MG/ML) INFIL ONE (11:51)
[2023-09-13] MEDS ORDERED: PROPOFOL IV EMULSION 10 MG/ML 20 ML VIAL IV ONE (11:51)
[2023-09-13] MEDS ORDERED: ROCURONIUM BROMIDE 10 MG/ML 5 ML VIAL IV ONE ×2 (11:52→13:53)
[2023-09-13] MEDS ORDERED: ONDANSETRON INJ 2 MG/ML 2 ML VIAL ONE (11:52)
[2023-09-13] MEDS ORDERED: DEXAMETHASONE SOD INJ 4 MG/ML VIAL ONE (11:52)
--- NOTE | 2023-09-13 12:24 | History & Physical Bridge Note ---
Date of Service September 13, 2023 History & Physical Bridge Note I have examined the patient, reviewed the History & Physical and in the interval since the performance of the History & Physical I have noted the following changes of clinical significance: no changes noted
--- NOTE | 2023-09-13 12:25 | History & Physical Report ---
Date of Service September 13, 2023 Assessment & Plan (1) Neurogenic claudication due to lumbar spinal stenosis: Plan: L2-L3 decompression and fusion, L3-S1 hardware removal History of Present Illness Chief Complaint: Back and leg pain Primary Care Provider: Radha Gar PA-C This is a 57-year-old female known to me the presents with worsening back and leg pain after failing course of nonoperative care is here for surgical invention. Allergies Allergy/AdvReac Type Severity Reaction Status Date / Time No Known Allergies Allergy Mild Verified 09/13/23 10:17 Home Medications Medication Instructions Recorded Confirmed Type albuterol sulfate 90 mcg/actuation 2 puffs inhalation Q6H PRN ASTHMA 09/19/19 08/16/23 History aerosol inhaler (Ventolin HFA) citalopram 40 mg tablet 40 mg PO QAM 09/19/19 09/13/23 History diltiazem HCl 120 mg 120 mg PO QAM 09/25/20 09/13/23 History capsule,extended release 12 hr budesonide-formoterol HFA 80 2 puff inhalation BID PRN Wheezing 11/25/22 08/16/23 History mcg-4.5 mcg/actuation aerosol inhaler (Symbicort) atorvastatin 80 mg tablet 80 mg PO QAM 04/21/23 09/13/23 History bupropion HCl 150 mg tablet,12 hr 150 mg PO QAM 04/21/23 09/13/23 History sustained-release (Wellbutrin SR) lisinopril 5 mg tablet 5 mg PO QAM 08/16/23 09/13/23 History Past Med/Surg History Medical History Morbid obesity Mild intermittent asthma Stable and controlled, no exacerbations in last 12 months- albuterol inhaler use rare History of cellulitis Strep A (seen at [facility] 2006), sent to [facility] for debridement, no recent issues DDD (degenerative disc disease), lumbar Spinal stenosis Depression Anxiety Left bundle branch block Follows with Dr. Bruno (cardio) Has had subsequent negative stress test in 2018 for LBBB evaluation Hyperlipidemia Hypertension Seasonal allergies Chronic rhinitis Surgical History History of lumbar spinal fusion 01/2023 @ [facility] Dr. Cedillo History of lumbar fusion L4-S1 decompression/fusion (01/01/20): Grade view 1, Stevens #2, ETT 7.5 at [facility]. No issues noted per post-op anesthesia progress note. Hx of myringotomy History of surgery on arm Debridement (for cellulitis) History of arthroscopy of right shoulder Hx of colonoscopy Hx of decompression of ulnar nerve Right H/O laparoscopy History of fusion of cervical spine C4-C5, good ROM per pt History of cholecystectomy History of carpal tunnel release bilateral S/P foot surgery, right Family History Mother Hypertension Father Dementia Grandmother Cancer Grandfather (Paternal) Heart disease Other No family history of adverse response to anesthesia Social History Smoking Status: Never smoker Second Hand Exposure: No; Do You Dip or Chew Tobacco: No; Tobacco Cessation Education Requested by Patient: No Hx Alcohol Use: No Hx Substance Use: No Preferred Language: Mexican Communication Ability: Effective Mechanics Handyman Required: No Beliefs That Will Affect Care: None marital status: Current Living Situation: Family Current Living Situation Comment: Lives with and 2 children Feels Safe at Home: Yes Safety Concerns: Feels Safe At This Time Assistive Devices: Glasses Physical Exam Physical Exam: Patient is alert and oriented Heart regular rhythm Lungs clear Results & Data Results & Data Vital Signs (Past 12 Hours) Vital Signs Temp Pulse Resp BP Pulse Ox O2 Del Method 09/13/23 10:21 36.7 C 81 18 147/89 H 98 Room Air
[2023-09-13] MEDS ORDERED: SCOPOLAMINE 1 MG TDSY TD ONE (12:50)
[2023-09-13] MEDS ORDERED: ceFAZolin 330 MG/ML 1 GM VIAL ONE (12:54)
[2023-09-13] MEDS ORDERED: BUPIVACAINE/EPINEPHRINE 0.25% 1:200,000 30 ML VIAL ONE (12:54)
[2023-09-13] MEDS ORDERED: HYDROmorphone INJ 2 MG/ML SYR/VIAL ONE (13:12)
[2023-09-13] MEDS ORDERED: PHENYLEPHRINE 100MCG/ML 5ML SYR ONE ×2 (13:31→14:14)
[2023-09-13] MEDS ORDERED: FLOSEAL HEMOSTATIC MATRIX 10ML TOP ONE (13:47)
[2023-09-13] MEDS ORDERED: SUGAMMADEX SODIUM 200 MG/2 ML VIAL IV ONE ×2 (14:58→15:16)
--- NOTE | 2023-09-13 14:59 | Operative Report ---
Post Operative Report Pre & Post Diagnosis Operation Date: 09/13/23 11:35 Pre-Op Diagnosis: Neurogenic claudication due to lumbar spinal stenosis Morbid obesity Post-Op Diagnosis: Same I identified the patient and participated in the time-out.: Yes Procedure Operation Date: 09/13/23 11:35 Actual Procedures #1 removal of posterior instrumentation L3-S1. #2 exploration of fusion L3-S1. #3 lumbar decompression bilaterally vasectomies and foraminotomies L1-L2 L2-L3. #4 posterior spinal fusion L2-L3. #5 placement posterior instrumentation L2-S1. #6 interbody fusion L2-3. #7 placement spiral 12 x 26 mm cage at L3-L3. #8 placement locally harvested morselized autograft in the posterior gutters. #9 placement of I factor interbody space and infuse collagen sponge combined mass graft in the posterior lateral gutters. Surgeon Lenin Cedillo, Sql Server [employer] Developer Hui Zendejas Estimated Blood Loss 130 Findings See Below Patient is 5 foot 2 weighing over 99 kg and a BMI in excess of 40. Patient's body habitus did contribute to significant technical difficulty with positioning exposure and the procedure itself adding at least 50% increased operative time. Specimens None Indications This is a 57-year-old female well-known to me the presents above-mentioned diagnosis after failing course of nonoperative care is here for surgical invention. Description of Procedure Patient was met with identified informed consent obtained. Patient was then taken to the operative suite underwent ablation placed in a prone position inject stable topicals and frame. All bony promises well-padded eyes inspected to ensure no external pressure placed on the bed at this point the lumbar spine was prepped and draped in sterile fashion. Sharp dissection with the assistance of Bovie cards from down to and exposing the lamina transverse processes of L2 and instrumentation extending from L3-S1. Then proceeded to move the hardware bilaterally explored the fusion mass noted to be mature and intact. Informed complete laminectomy of L2 partial laminectomy L1 including bilateral medial facetectomies and foraminotomies addressing severe spinal stenosis as well as massive facet cyst at L2-L3 on the right. After complete decompression pedicle screws were placed in L2-L3-L4 and S1 levels bilaterally with assistance of fluoroscopy and the properly sized kendra placed. By way of transforaminal approach on the right complete discectomy of L2-L3 was performed endplates guarded to subcortical bleeding bone and a 12 x 26 mm Spira cage with I factor tapped in position. The rods were then compressed locked into final position bilaterally. The transverse processes of L2-L3 burred to subcortical bleeding bone. Infuse collagen sponge, mass graft local autograft was placed in the posterior gutters. 15 round JENN drain inserted. Incision was then closed with 1 Vicryl to fascia 2-0 Vicryl subcutaneously and 4 Monocryl for final skin closure. Steri-Strips sterile dressings placed. Patient waken taken to PACU stable condition. Please note spinal cord monitoring was utilized at the procedure no changes noted. Lastly Hui Zendejas was present that the entire procedure on the patient positioning complex portion of the surgery and final skin closure. I attest to the content of the Intraoperative Record and any orders documented therein. Any exceptions are noted below.
--- NOTE | 2023-09-13 15:43 | Fluoroscopy Report ---
FL lumbar spine 2-3V CLINICAL HISTORY: L2-L3 DECOMPRESSION AND FUSION COMPARISON STUDY: 01/06/2023 FLUOROSCOPY TIME: 14 seconds FLUOROSCOPY IMAGES: 2 Ka,r: 13.1 mGy FINDINGS: Interval L2-L3 posterior decompression and fusion with pedicle screws and rods. A disc spac er is in place. Prior posterior decompression fusion within the remaining visualized lumbar spine. Th e hardware appears intact. IMPRESSION: Fluoroscopic assistance as above. ACT 112: Negative or not required by law. Electronically signed by: Edwin Sheldon M.D. 09/13/2023 3:41 PM
--- NOTE | 2023-09-13 16:29 | Anesthesiology Progress Note ---
Date of Service September 13, 2023 Anesthesia Post Procedure Vital Signs Vital Signs: Temp Pulse Resp BP BP Pulse Ox O2 Del Method 09/13/23 16:20 95 H 12 125/78 95 Oxymask 09/13/23 16:10 92 H 14 156/77 H 95 Oxymask 09/13/23 16:00 93 H 14 152/72 H 95 Oxymask 09/13/23 15:50 96 H 14 138/96 92 Oxymask 09/13/23 15:40 98 H 14 150/83 H 93 Oxymask 09/13/23 15:33 36.2 C L 102 H 14 160/80 H 93 Oxymask 09/13/23 10:21 36.7 C 81 18 147/89 H 98 Room Air O2 Flow Rate 09/13/23 16:20 6 09/13/23 16:10 6 09/13/23 16:00 8 09/13/23 15:50 8 09/13/23 15:40 8 09/13/23 15:33 8 09/13/23 10:21 Pain Intensity Lower Back: Pain Intensity: 8 Transfer of Care Handoff Completed per policy Notes Mental Status: alert / awake / arousable Patient Amnestic to Procedure: Yes Nausea / Vomiting: adequately controlled Pain: adequately controlled Airway Patency, RR, SpO2: stable & adequate BP & HR: stable & adequate Hydration State: stable & adequate Anesthetic Complications: no major complications apparent
[2023-09-13] MEDS ORDERED: DO NOT ADMINISTER PNEUMOCOCCAL VACCINE PRN (17:18)
[2023-09-13] MEDS ORDERED: DO NOT ADMINISTER FLU VACCINE PRN (17:18)
[2023-09-13] MEDS ORDERED: SOD PHOSPHATE/SOD BIPHOSPHATE ENEMA 132 ML BTL PR PRN (17:18)
[2023-09-13] MEDS ORDERED: ALBUTEROL HFA 8 GM INHALER INH PRN (17:18)
[2023-09-13] MEDS ORDERED: LORazepam 2 MG/1 ML VIAL IV PRN (17:18)
[2023-09-13] MEDS ORDERED: NALOXONE HCL 0.4 MG/1 ML VIAL/CARP IV PRN (17:18)
[2023-09-13] MEDS ORDERED: MAGNESIUM HYDROXIDE SUSP 30 ML UDC PO PRN (17:18)
[2023-09-13] MEDS ORDERED: ACETAMINOPHEN 500 MG TAB PO PRN (17:18)
[2023-09-13] MEDS ORDERED: LORazepam 0.5 MG TAB PO PRN (17:18)
[2023-09-13] MEDS ORDERED: diphenhydrAMINE Capsule 25 MG CAP PO PRN (17:18)
[2023-09-13] MEDS ORDERED: ONDANSETRON 4 MG OD TAB PO PRN (17:18)
[2023-09-13] MEDS ORDERED: ACETAMINOPHEN 1,000 MG/100 ML VIAL IV PRN (17:18)
[2023-09-13] MEDS ORDERED: hydrOXYzine HCl 25 MG TAB PO PRN (17:18)
[2023-09-13] MEDS ORDERED: bisacodyL 10 MG SUPP PR PRN (17:18)
[2023-09-13] MEDS ORDERED: METOCLOPRAMIDE HCL INJ 5 MG/ML 2 ML VIAL IV PRN (17:18)
[2023-09-13] MEDS ORDERED: FAMOTIDINE 20 MG TAB PO PRN (17:18)
[2023-09-13] MEDS ORDERED: HYDROmorphone INJ 0.5 MG/0.5 ML SYR IV PRN (17:18)
[2023-09-13] MEDS ORDERED: ALUMINUM/MAGNESIUM SUSP 30 ML UDC PO PRN (17:18)
[2023-09-13] MEDS ORDERED: FLUTICASONE/VILANTEROL 100/25MCG 14 PUFFS/INHALER INH PRN (17:23)
[2023-09-13] MEDS: LACTATED RINGER'S 1,000 ML IV SCH (17:30)
[2023-09-13] MEDS: oxyCODONE HCL IR 5 MG TAB (IMMEDIATE RELEASE) PO PRN (20:13)
[2023-09-13] MEDS: DOCUSATE SODIUM/SENNA 50/8.6MG TAB PO SCH (20:13)
[2023-09-13] MEDS: ceFAZolin 2000MG 2,000 MG/15 ML SYR IV SCH (20:13)
[2023-09-14] MEDS ORDERED: Nursing to Pharmacy Communication SCH (00:15)
[2023-09-14] MEDS: traMADol HCL 50 MG TABLET PO PRN ×2 (01:57→11:44)
[2023-09-14] MEDS: ceFAZolin 2000MG 2,000 MG/15 ML SYR IV SCH (05:16)
[2023-09-14] MEDS: POLYETHYLENE (MIRALAX) 17 GM PACK PO SCH ×4 (05:17→23:16)
[2023-09-14] MEDS: oxyCODONE HCL IR 5 MG TAB (IMMEDIATE RELEASE) PO PRN ×2 (05:25→16:59)
[2023-09-14] MEDS: LACTATED RINGER'S 1,000 ML IV SCH (07:26)
[2023-09-14] MEDS: HYDROmorphone INJ 1 MG/ML SYRINGE IV PRN ×2 (08:21→20:24)
[2023-09-14] MEDS: CITALOPRAM 40 MG TAB PO SCH (08:25)
[2023-09-14] MEDS: lisinopril 5 MG TAB PO SCH (08:25)
[2023-09-14] MEDS: ATORVASTATIN 40 MG TAB PO SCH (08:26)
[2023-09-14] MEDS: dilTIAZem HCL 120 MG CAPCR PO SCH (08:26)
[2023-09-14] MEDS: dexAMETHasone 6 MG in SYRINGE 0 ML IV SCH (08:26)
[2023-09-14] MEDS: buPROPion SR 150 MG TABCR PO SCH (08:26)
[2023-09-14 08:40] LABS: Basophils # (auto) 0.01 K/uL (0.00-0.20); Basophils % (auto) 0.1 %; Hematocrit (blood only) 34.9 % (37.0-47.0); Hemoglobin 11.8 g/dl (12.0-16.0); Immature Granulocytes # (auto) 0.07 K/uL (0.01-0.20); Immature Granulocytes % (auto) 0.5 %; Lymphocytes # (auto) 0.84 K/uL (1.20-3.40); Lymphocytes % (auto) 5.9 %; Mean Corpuscular Hemoglobin 29.6 pg (25.0-34.0); Mean Corpuscular Hgb Conc 33.8 g/dL (32.0-36.0); Mean Corpuscular Volume 87.5 fL (80.0-100.0); Mean Platelet Volume 9.9 fL (9.4-12.4); Monocytes # (auto) 0.93 K/uL (0.11-0.59); Monocytes % (auto) 6.5 %; Platelet Count 256 K/uL (130-400); RDW Standard Deviation 38.5 fL (36.4-46.3); Red Blood Count 3.99 M/uL (4.20-5.40); White Blood Count 14.25 K/ul (4.8-10.8)
[2023-09-14 08:57] LABS: Anion Gap 5 (3-11); BUN Creatinine Ratio 15.7 (10-20); Blood Urea Nitrogen 18 mg/dl (6-23); Calcium 9.5 mg/dl (8.6-10.3); Carbon Dioxide 29 mmol/L (21-32); Chloride 102 mmol/L (98-107); Creatinine Clr Calc Pharmacy 60.9 ml/min; Est GFR (Non-African American) 53.5 ml/min; Glucose 124 mg/dl (70-99(Fasting)); Sodium 136 mmol/L (136-145)
--- NOTE | 2023-09-14 09:25 | Hospitalist Progress Note ---
Date of Service September 14, 2023 Assessment & Plan (1) Lumbar spinal stenosis: Plan: 09/13/23 L2-L# decompression and fusion removal of hardward L3-S1 pain control with tylenol, ultran and parenteral opiates bowel regimen ordered acute blood loss anemia not in need of transfusion (2) Depression: Plan: chronic stable on Wellbutrin we will continue (3) Hypertension: Plan: typical on lisinopril, diltiazem Secondary risk reduction for cardiovascular disease with atorvastatin 80 (4) Asthma: Plan: chronic stable remains on simple Admission and Anticipated Discharge Date Admission Date: September 13, 2023 Subjective back pain controlled, no radicular symptoms asthma stable Physical Exam Physical Exam: lungs are clear cardiac exam is regular LE are with intact strength and sensation Results & Data Results & Data Vital Signs (Past 12 Hours) Vital Signs Temp Pulse Pulse Resp BP Pulse Ox O2 Del Method 09/14/23 07:44 97.9 F 87 18 128/87 95 Room Air 09/14/23 04:00 98.1 F 79 18 113/67 97 Nasal Cannula 09/13/23 23:50 98.2 F 78 18 107/64 96 Nasal Cannula O2 Flow Rate 09/14/23 07:44 09/14/23 04:00 4 09/13/23 23:50 4 PG Care Time/CCT Total # of Minutes Spent Total Time Spent with Patient: Total time spent is greater than 50% in coordination of care (as documented) at patient's floor/unit and/or counseling patient: Coding Level of Care Code 10510 SUB INP/OBS CARE 2/35MIN Diagnoses Lumbar spinal stenosis M48.061 Depression F32.9 Hypertension I10 Asthma J45.909
--- NOTE | 2023-09-14 10:36 | Orthopedic Progress Note ---
Date of Service September 14, 2023 Assessment & Plan (1) Neurogenic claudication due to lumbar spinal stenosis: Plan: At this time initiate physical therapy monitor JENN operatively discharge home this weekend. Admission and Anticipated Discharge Date Admission Date: September 13, 2023 Subjective Back pain controlled leg symptoms improved Physical Exam Physical Exam: Patient is currently in bed. Is constricted testing. Sensory intact. Results & Data Vital Signs (Past 12 Hours) Vital Signs Temp Pulse Pulse Resp BP Pulse Ox O2 Del Method 09/14/23 07:44 36.6 C 87 18 128/87 95 Room Air 09/14/23 04:00 36.7 C 79 18 113/67 97 Nasal Cannula 09/13/23 23:50 36.8 C 78 18 107/64 96 Nasal Cannula O2 Flow Rate 09/14/23 07:44 09/14/23 04:00 4 09/13/23 23:50 4 Queries Orthopedic Spine Obesity: Yes
--- NOTE | 2023-09-14 16:41 | Hospitalist Consultation ---
Date of Consultation September 14, 2023 Assessment & Plan (1) Lumbar spinal stenosis: 09/13/23 L2-L# decompression and fusion removal of hardward L3-S1 pain control with tylenol, ultran and parenteral opiates bowel regimen ordered acute blood loss anemia not in need of transfusion (2) Depression: chronic stable on Wellbutrin and Celexa, we will continue (3) Hypertension: typical on lisinopril, diltiazem Secondary risk reduction for cardiovascular disease with atorvastatin 80 (4) Asthma: chronic stable remains on simple History of Present Illness Attending Physician: Lenin Cedillo DO History of Present Illness 57-year-old female underwent L2-L3 decompression and fusion and L3 S1 hardware removal by Dr. Cedillo on 09/13/2023 patient doing well postoperatively her typical medical issues are without concerns at this time reviewed home medications with patient Allergies Allergy/AdvReac Type Severity Reaction Status Date / Time No Known Allergies Allergy Mild Verified 09/13/23 10:17 Home Medications Medication Instructions Recorded Confirmed Type albuterol sulfate 90 mcg/actuation 2 puffs inhalation Q6H PRN ASTHMA 09/19/19 08/16/23 History aerosol inhaler (Ventolin HFA) citalopram 40 mg tablet 40 mg PO QAM 09/19/19 09/13/23 History diltiazem HCl 120 mg 120 mg PO QAM 09/25/20 09/13/23 History capsule,extended release 12 hr budesonide-formoterol HFA 80 2 puff inhalation BID PRN Wheezing 11/25/22 08/16/23 History mcg-4.5 mcg/actuation aerosol inhaler (Symbicort) atorvastatin 80 mg tablet 80 mg PO QAM 04/21/23 09/13/23 History bupropion HCl 150 mg tablet,12 hr 150 mg PO QAM 04/21/23 09/13/23 History sustained-release (Wellbutrin SR) lisinopril 5 mg tablet 5 mg PO QAM 08/16/23 09/13/23 History oxycodone 5 mg tablet 5 mg PO Q6H PRN pain #30 tabs 09/14/23 Rx tramadol 50 mg tablet 50 mg PO Q6H PRN pain, moderate 09/14/23 Rx #30 tabs Patient History Medical History (Updated 09/14/23 @ 09:22 by Ebenezer Flores MD) Morbid obesity Mild intermittent asthma Stable and controlled, no exacerbations in last 12 months- albuterol inhaler use rare History of cellulitis Strep A (seen at [facility] 2006), sent to [facility] for debridement, no recent issues DDD (degenerative disc disease), lumbar Spinal stenosis Depression Anxiety Left bundle branch block Follows with Dr. Bruno (cardio) Has had subsequent negative stress test in 2018 for LBBB evaluation Hyperlipidemia Hypertension Seasonal allergies Chronic rhinitis Surgical History History of lumbar spinal fusion 01/2023 @ [facility] Dr. Cedillo History of lumbar fusion L4-S1 decompression/fusion (01/01/20): Grade view 1, Stevens #2, ETT 7.5 at [facility]. No issues noted per post-op anesthesia progress note. Hx of myringotomy History of surgery on arm Debridement (for cellulitis) History of arthroscopy of right shoulder Hx of colonoscopy Hx of decompression of ulnar nerve Right H/O laparoscopy History of fusion of cervical spine C4-C5, good ROM per pt History of cholecystectomy History of carpal tunnel release bilateral S/P foot surgery, right Family History Mother Hypertension Father Dementia Grandmother Cancer Grandfather (Paternal) Heart disease Other No family history of adverse response to anesthesia Social History Smoking Status: Never smoker Second Hand Exposure: No; Do You Dip or Chew Tobacco: No; Tobacco Cessation Education Requested by Patient: No Hx Alcohol Use: No Hx Substance Use: No Preferred Language: Icelandic Communication Ability: Effective Typewriter Ribbon Winder Required: No Beliefs That Will Affect Care: None marital status: Current Living Situation: Family Current Living Situation Comment: Lives with and 2 children Feels Safe at Home: Yes Safety Concerns: Feels Safe At This Time Assistive Devices: Bedside Commode, Cane and Walker Physical Exam Physical Exam: awake alert appropriate. No neurological deficits. Lower extremity strength and sensation is intact as best can be examined in bed card exam is regular lung exam is clear abdomen exam is NABS soft and nontender Results & Data Results & Data Vital Signs (Past 12 Hours) Vital Signs Temp Pulse Pulse Resp BP BP Pulse Ox 09/14/23 15:00 98.8 F 92 H 18 124/65 95 09/14/23 11:01 98.4 F 99 H 16 128/71 96 09/14/23 07:44 97.9 F 87 18 128/87 95 O2 Del Method 09/14/23 15:00 Room Air 09/14/23 11:01 Room Air 09/14/23 07:44 Room Air PG Care Time/CCT Total # of Minutes Spent Total Time Spent with Patient: Total time spent is greater than 50% in coordination of care (as documented) at patient's floor/unit and/or counseling patient: Coding Level of Care Code None Diagnoses Lumbar spinal stenosis M48.061 Depression F32.9 Hypertension I10 Asthma J45.909
[2023-09-14] MEDS: DOCUSATE SODIUM/SENNA 50/8.6MG TAB PO SCH (20:24)
[2023-09-15] MEDS: traMADol HCL 50 MG TABLET PO PRN ×4 (02:00→20:49)
[2023-09-15] MEDS: POLYETHYLENE (MIRALAX) 17 GM PACK PO SCH ×4 (05:29→23:21)
[2023-09-15] MEDS: oxyCODONE HCL IR 5 MG TAB (IMMEDIATE RELEASE) PO PRN ×4 (05:34→18:48)
[2023-09-15] MEDS: dexAMETHasone 6 MG in SYRINGE 0 ML IV SCH (09:09)
[2023-09-15] MEDS: ATORVASTATIN 40 MG TAB PO SCH (09:09)
[2023-09-15] MEDS: buPROPion SR 150 MG TABCR PO SCH (09:10)
[2023-09-15] MEDS: lisinopril 5 MG TAB PO SCH (09:10)
[2023-09-15] MEDS: CITALOPRAM 40 MG TAB PO SCH (09:10)
[2023-09-15] MEDS: dilTIAZem HCL 120 MG CAPCR PO SCH (09:10)
--- NOTE | 2023-09-15 13:28 | Orthopedic Progress Note ---
Date of Service September 15, 2023 Assessment & Plan (1) Neurogenic claudication due to lumbar spinal stenosis: Plan: At this time we will continue physical therapy monitor JENN output elevate discharge home later this weekend. Admission and Anticipated Discharge Date Admission Date: September 13, 2023 Subjective Patient's back pain is controlled leg symptoms improved Physical Exam Physical Exam: Patient is currently bed to skin strength testing. Results & Data Vital Signs (Past 12 Hours) Vital Signs Temp Pulse Resp BP Pulse Ox O2 Del Method 09/15/23 07:14 36.9 C 71 16 115/66 94 Room Air Queries Orthopedic Spine Obesity: Yes
[2023-09-15] MEDS: DOCUSATE SODIUM/SENNA 50/8.6MG TAB PO SCH (20:48)
[2023-09-16] MEDS: oxyCODONE HCL IR 5 MG TAB (IMMEDIATE RELEASE) PO PRN ×3 (00:19→19:34)
[2023-09-16] MEDS: POLYETHYLENE (MIRALAX) 17 GM PACK PO SCH ×3 (05:02→17:09)
[2023-09-16] MEDS: traMADol HCL 50 MG TABLET PO PRN ×4 (05:02→23:45)
[2023-09-16] MEDS: ATORVASTATIN 40 MG TAB PO SCH (08:07)
[2023-09-16] MEDS: lisinopril 5 MG TAB PO SCH (08:08)
[2023-09-16] MEDS: CITALOPRAM 40 MG TAB PO SCH (08:08)
[2023-09-16] MEDS: dilTIAZem HCL 120 MG CAPCR PO SCH (08:08)
[2023-09-16] MEDS: dexAMETHasone 6 MG in SYRINGE 0 ML IV SCH (08:08)
[2023-09-16] MEDS: buPROPion SR 150 MG TABCR PO SCH (08:08)
--- NOTE | 2023-09-16 09:02 | Orthopedic Progress Note ---
Date of Service September 16, 2023 Assessment & Plan (1) Lumbar spinal stenosis: Plan: At this time continue physical therapy monitor JENN output anticipate discharge home tomorrow. Admission and Anticipated Discharge Date Admission Date: September 13, 2023 Subjective Back pain controlled leg pain improved Physical Exam Physical Exam: On exam she has good strength testing. There is comfortable. Results & Data Vital Signs (Past 12 Hours) Vital Signs Temp Pulse Resp BP Pulse Ox O2 Del Method 09/16/23 08:44 36.7 C 90 16 131/69 96 Room Air Queries Orthopedic Spine Obesity: Yes
[2023-09-16] MEDS: HYDROmorphone INJ 1 MG/ML SYRINGE IV PRN (13:21)
[2023-09-16] MEDS: DOCUSATE SODIUM/SENNA 50/8.6MG TAB PO SCH (19:35)
[2023-09-17] MEDS: oxyCODONE HCL IR 5 MG TAB (IMMEDIATE RELEASE) PO PRN ×2 (05:46→11:45)
[2023-09-17] MEDS: CITALOPRAM 40 MG TAB PO SCH (07:50)
[2023-09-17] MEDS: buPROPion SR 150 MG TABCR PO SCH (07:50)
[2023-09-17] MEDS: dilTIAZem HCL 120 MG CAPCR PO SCH (07:50)
[2023-09-17] MEDS: lisinopril 5 MG TAB PO SCH (07:51)
[2023-09-17] MEDS: ATORVASTATIN 40 MG TAB PO SCH (08:28)
[2023-09-17] MEDS: traMADol HCL 50 MG TABLET PO PRN (08:29)
--- NOTE | 2023-09-17 08:54 | Discharge Summary ---
Date of Service September 17, 2023 Admission HPI Per Admitting Provider This is a 57-year-old female known to me the presents with worsening back and leg pain after failing course of nonoperative care is here for surgical invention. Admission Exam (Per Admitting) Constitutional WD/WN, vitals as above Eyes normal visual beal by confrontation ENMT external ear and nose normal, oropharynx normal Neck normal visual inspection Respiratory normal respiratory effort Cardiovascular Extremities: normal capillary refill Gastrointestinal (Abdomen) Inspection/Auscultation: abdomen normal to inspection Musculoskeletal Spine: + pain with thoraco-lumbar ROM Gait: normal gait Skin no rashes, warm and dry Neurologic normal touch/pain/proprioception and moves all extremities Psychiatric A+Ox3, euthymic affect Discharge Data Consultations 09/13/23 17:18 Consult Hospitalist Routine Procedures Performed Operation Date: 09/13/23 11:35 Actual Procedures p L2-L3 Decompression and Fusion - Lenin Cedillo DO s L3-S1 Hardware Removal - Lenin Cedillo DO Hospital Course (1) Neurogenic claudication due to lumbar spinal stenosis: Cody mane postoperative day 4 status post hard removal L3-S1, decompression and fusion L2-3. She is being discharged home on postoperative day 4. Pain is controlled. She is making great progress in physical therapy daily. JENN drain output is diminishing consistently every shift. She is otherwise had an uneventful postoperative hospital course Discharge Instructions ACTIVITY RECOMMENDATIONS: SELF CARE INSTRUCTIONS AFTER THORACIC/LUMBAR FUSIONS 1. You may walk to your tolerance. It is good exercise for your legs and back. Expect some back and intermittent leg aches and pains. 2. You may perform "counter-top" level activities (make a sandwich, amol with a project, etc.). 3. No bending or lifting of more than 10 pounds or back twisting of any nature (roll like a log when turning in bed). 4. You may ride in a car for 20-30 minutes at a time. No driving until after your first visit with your doctor. 5. Frequent changes of position and restricting sitting to 30 minutes at a time will help limit the amount of back spasms and stiffness you may experience. 6. You may discontinue the use of ambulatory aids (cane, crutches, etc.) once your strength and confidence allow. 7. You may drafting teacher the shower and let water strike your incision when you arrive home at least once daily. Do not take a tub bath, sit in a hot tub or go into a swimming pool until after your first recheck in the office. SPECIAL CARE INSTRUCTIONS: VERY IMPORTANT TO READ AND REVIEW A. Your surgical incision has been closed with a cosmetic suture under the skin that will dissolve in about 6 weeks. In 14 days, you can use a pair of clean scissors and cut the suture that is left outside of the skin at the ends of your incision. 1. The small skin tapes can be removed 7 days after surgery if they have not fallen off by that point. 2. You may keep the wound open to air as much as possible to promote healing after post-op day number 5 unless told otherwise by your doctor. 3. If you think the wound looks like it is becoming infected (redness or worsening drainage) and/or you are experiencing fever, chill or worsening back pain and muscle spasms, contact the office so that we may evaluate you as soon as possible. B. Complications are uncommon, but please contact us if you have any signs or symptoms of: 1. wound infection (fever higher than 102.5 degrees F, redness, separation of wound, drainage, or increasing pain from the incision) 2. blood clots in legs (pain, swelling, redness and warmth in legs) 3. urinary tract infection (fever higher than 102.5 degrees F, burning upon urination or increased frequency of urination) 4. nerve problems (inability to walk on your toes or heels, numbness, loss of bowel or bladder control) 5. any other symptoms that concern you C. Please call the office at if you have any concerns or questions about your operation or recovery. D. No smoking! Smoking drastically decreases the chance of a solid fusion. E. Do not take any anti-inflammatory medications (Indocin, Advil, Motrin, Aspirin, Naprosyn, etc.) as these may inhibit the chance of a solid fusion. Tylenol is okay to take for pain. MANAGING PAIN AFTER SPINAL SURGERY 1. Narcotic medication is intended for short-term use and will be provided for surgical pain. Surgical pain usually lasts for a period of 4-6 weeks. Narcotic medication includes Percocet, Vicodin, Darvocet, Tylenol #3 or Lortab. 2. Longer-term pain is more appropriately treated with non-narcotic medication such as Tylenol ES. 3. Muscle spasm is not appropriately treated with narcotics. Muscle relaxers such as Soma, Flexeril or Skelaxin can be used along with Tylenol ES. 4. Remember that we all live with some "aches and pains". This is not unusual or uncommon after an injury or as we get older. a. Back pain is expected and may include muscle spasms for 4 to 6 weeks after surgery. The pain should gradually improve. If the pain worsens for no apparent reason, please contact the office. b. Intermittent leg pain may also be experienced and should not be concerned about unless it worsens for no apparent reason. If so, please contact the office. 5. We will provide appropriate medication within the normal guidelines of their prescribed use. We will also be very cautious and aware of potential abuse and extended duration of patients' medication needs. a. Pain medications are for your comfort and to assist with sleep and rest so that the tissue can heal. They are not provided in order to return to normal activity and should not be used through the day. To do so or worsening pain at night can result from ongoing tissue damage and development of tolerance to the prescribed medicine. 6. Please allow 2-3 days to process refills. Prescriptions will not be mailed but must be picked up at the office. FOLLOW UP VISIT: Keep your scheduled follow-up appointment. Any questions, please call the office at .
--- OUTSIDE RECORDS SUMMARY | 2023-09-17 14:04 | External Medical Summary | Continuity of Care Document ---
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 Name Role Phone Radha Gar Primary Care Physician [phone] [id number] Date(s): 08/28/23 - 08/28/23 [facility] [id number], [address] [place] [address] [phone] Encounter Diagnosis Pre-operative exam(Discharge Diagnosis) - 08/28/23 Lumbar radiculopathy(Discharge Diagnosis) - 08/28/23 Acute bacterial sinusitis(Discharge Diagnosis) - 08/28/23 Acute asthma exacerbation(Discharge Diagnosis) - 08/28/23 Benign hypertension without CHF(Discharge Diagnosis) - 08/28/23 Hyperlipidemia(Discharge Diagnosis) - 08/28/23 DEPRESSION, NOS(Discharge Diagnosis) - 08/28/23 Discharge Disposition: Home or Self Care Attending Physician: PAMELLA Gar Jessica A Allergies, Adverse Reactions, Alerts No Known Allergies Assessment and Plan Extracted from: Title:pre op Author:PAMELLA Gar Jessica A Date:08/28/23 1.Pre-operative exam Dalemina has been medically optimized forupcoming lumbar spine [facility]to [facility] Preoperative chest x-ray, PT/INR/PTT, urinalysis, BMP, CBC with differentialandoutpatient [facility] cardiology note from last month was reviewed today; all normal. Sandra revised cardiac risk index is estimated to be ~0.4- 0.5% of cardiac complications (sudden , DE, cardiac arrest, ventricular fibrillation, heart block and pulmonary edema). 2.Lumbar radiculopathy As above in #1. 3.Acute bacterial sinusitis Given Augmentin 875 mg, 1 tab p.o. twice daily for 10 days with food. Encouraged rest, clear fluids, humidification and saline nasal rinses. Follow-up if symptoms or not improving after 7 to 10 days, worsen or change. 4.Acute asthma exacerbation Patient does havea mild, acute asthma exacerbation in the settingof upper respiratory symptoms. We will have her restart Symbicort 80/4.5 mcg, 2 inhalations p.o. twice daily x1 month to rinse mouth after each use. Refilled albuterol inhaler 90 mcg, 2 inhalations p.o. 4 times daily as needed for wheezing, chest tightness or shortness of breath. Reviewed thatif symptoms are not improving over the next 3 to 5 days to contact the office and we will plan to give a short burst of prednisone. Preoperative chest x-ray completed on 08/23/2023 was reviewed today and showed no sign of acute changes. 5.Benign hypertension without CHF Benign HTN without congestive heart failure is chronic and currently well controlled with lisinopril5 mg daily and diltiazem CD1 120 mg once daily. Goal SBP <135 and DBP <85 mmHg. Continue current regimen. 6.Hyperlipidemia Hyperlipidemia is chronic and now well controlled with atorvastatin 80 mg, 1 tab p.o. daily. Updated lipid profile completedearlier this month showedgreat improvement in LDL, which is now <100. Continue current regimen. Time spent on pre-visit plannin minutes on chart review Face to face time spent w/ patient:21 minutes Time spent documenting pertinent clinical information into the EMR:22 minutes Total time: 45 minutes Immunizations Given and Recorded Vaccine Date Status Refusal Reason influenza virus vaccine, inactivated 08/05/22 Give n influenza virus vaccine, inactivated 10/08/21 Give n influenza virus vaccine, inactivated 09/24/19 Zay rded influenza virus vaccine, inactivated 08/20/18 Give n influenza virus vaccine, inactivated 07/18/17 Give n influenza virus vaccine, inactivated 08/19/16 Give n influenza virus vaccine, inactivated 08/14/15 Give n influenza virus vaccine, inactivated 08/08/14 Give n influenza virus vaccine, inactivated 07/26/13 Give n influenza virus vaccine, inactivated 10/16/12 Give n influenza virus vaccine, inactivated 09/03/12 Give n influenza virus vaccine, inactivated 08/25/11 Give n pneumococcal 13-valent vaccine 05/31/17 Given tetanus/diphtheria/pertuss, acel (Tdap) 1 03/22/15 Recorded tetanus/diphtheria/pertuss, acel (Tdap) 04/10/13 G iven diphtheria/pertussis, whole cell/tetanus 2 03/22/15 Recorded pneumococcal 23-valent vaccine 08/12/13 Given 1Result Comment: 2021-04-09: Historical information-source unspecified 2Result Comment: 2021-04-09: Historical information-source unspecified Medications Albuterol (Eqv-Proventil HFA) 90 mcg/inh inhalation aerosol Start: 08/28/23 15:17:00 EDT, 2 puff, inhaled, q6h, Disp# 8.5 g, Pharmacy: [facility]/pharmacy #[id number] Start Date: 08/28/23 Stop Date: 09/27/23 Status: Ordered Augmentin 875 mg-125 mg oral tablet Start: 08/28/23 15:17:00 EDT, amoxicillin 1 tab, PO, q12h, Disp# 20, X 10 day, with food or milk, Stop: 09/07/23 15:17:00 EDT, Pharmacy: [facility]/pharmacy #[id number] Start Date: 08/28/23 Stop Date: 09/07/23 Status: Ordered Cardizem CD 120 mg/24 hours oral capsule, extended release Start: 08/05/22 10:06:00 EDT, 1 cap, PO, Daily, Disp# 90 cap, Refills: 3, Pharmacy: [facility] Start Date: 08/05/22 Status: Ordered citalopram 40 mg oral tablet Start: 12/21/22 18:11:00 EST, See Instructions, Disp# 90 tab, Refills: 3, TAKE 1 TABLET BY MOUTH ONCE DAILY, Pharmacy: [facility] Start Date: 12/21/22 Status: Ordered Fish Oil Start: 08/04/11 8:34:00, 1,000 mg =, PO, tid, cap Start Date: 08/04/11 Status: Ordered Lipitor 80 mg oral tablet Start: 04/13/23 13:25:00 EDT, 1 tab, PO, qhs, Disp# 90 tab, Refills: 3, Pharmacy: [facility] Start Date: 04/13/23 Stop Date: 04/07/24 Status: Ordered lisinopril 5 mg oral tablet Start: 12/21/22 18:11:00 EST, 1 tab, PO, Daily, Disp# 90 tab, Refills: 3, Pharmacy: [facility] Start Date: 12/21/22 Status: Ordered LORazepam 0.5 mg oral tablet Start: 04/07/23 8:14:00 EDT, 1 tab, PO, Daily, Disp# 30 tab, as needed, Pharmacy: [facility] Start Date: 04/07/23 Stop Date: 05/07/23 Status: Ordered multivitamin Start: 12/31/10 8:51:00, PO, Daily, No Dosage Noted Start Date: 12/31/10 Status: Ordered ProAir HFA 90 mcg/inh inhalation aerosol Start: 07/09/20 10:35:00 EDT, 2 puff, inhaled, q4h, Disp# 3 each, Refills: 1, PRN: as needed for wheezing, Pharmacy: [facility], 157, cm, 12/19/19 9:20:00 EST, Height Start Date: 07/09/20 Status: Ordered Symbicort 80 mcg-4.5 mcg/inh inhalation aerosol Start: 08/28/23 15:15:00 EDT, 2 puff, inhaled, bid, Disp# 1 each, Pharmacy: [facility]/pharmacy #[id number] Start Date: 08/28/23 Stop Date: 09/27/23 Status: Ordered VESIcare 5 mg oral tablet Start: 12/21/22 18:11:00 EST, 1 tab, PO, Daily, Disp# 90 tab, Refills: 3, Pharmacy: [facility] Start Date: 12/21/22 Status: Ordered Vitamin D3 400 intl units oral tablet Start: 03/05/18 7:55:00 EDT, 1 tab, PO, Daily Start Date: 03/05/18 Status: Ordered Wellbutrin XL 150 mg/24 hours oral tablet, extended release Start: 04/07/23 8:13:00 EDT, 1 tab, PO, q24h, Disp# 90 tab, Refills: 3, Pharmacy: [facility] Start Date: 04/07/23 Stop Date: 04/01/24 Status: Ordered Mental Status 08/28/23 Barriers to Learning one year None evide nt Mandatory Health Literacy Documentation Yes Health Literacy Communication Barriers N ever Primary Language Ukrainian Problem List Condition Confirmation Course Effective Dates Status H ealth Status Informant Multiple allergies Confirmed Active ALLERGIC RHINITIS, CAUSE UNSPECIFIED Confirmed Active Benign hypertension without CHF Confirmed Active CHRONIC SINUSITIS Confirmed Active DDD (degenerative disc disease), lumbar Confirmed Active Heart murmur Confirmed Active Status post lumbar spine surgery for decompression of spinal cord Confirmed Active HTN (hypertension) Confirmed Active LBBB (left bundle branch block) Confirmed Active Right lumbar radiculopathy Confirmed Active Mass of left parotid gland Confirmed Active Asthma Confirmed Active Hyperlipidemia Confirmed Active Onychomycosis of toenail Confirmed Active Postoperative back pain Confirmed Active Chronic left shoulder pain Confirmed Active Urinary incontinence, urge Confirmed Active Weight disorder Confirmed Active Diagnosis Diagnosis Type Effective Dates Health Status Clinical Service Informant Pre-operative exam Discharge Diagnosis 08/28/23 Benign hypertension without CHF Discharge Diagnosis 08/28/23 Hyperlipidemia Discharge Diagnosis 08/28/23 DEPRESSION, NOS Discharge Diagnosis 08/28/23 Lumbar radiculopathy Discharge Diagnosis 08/28/23 Acute bacterial sinusitis Discharge Diagnosis 08/28/23 Acute asthma exacerbation Discharge Diagnosis 08/28/23 Procedures Procedure Date Related Diagnosis Body Site Status Orthopedic service 1 01/06/23 Comp leted Radionuclide myocardial perf usion study using technetium Tc^99m^ tetrofosmin 2 12/29/[address] of paranasal sinuses 3 10/07/22 Completed Mammogram - screening 4 10/07/22 C ompleted Fluoroscopy guided injection of left facet joint of lumbar spine 07/05/22 Comp leted Diagnostic mammogram Right 5 06/24/22 Completed Diagnostic mammogram Right 6 03/18/22 Completed Mammogram 7 03/18/22 Completed Diagnostic mammogram & Right US 8 03/04/22 Completed Mammogram - screening 9 02/15/22 C ompleted Mammogram 10 02/11/21 Completed Pap smear and HPV cotesting 11 12/18/20 Completed Neurogenic claudication due to lumbar spinal stenosis 12 01/01/20 Completed Mammogram 13 11/22/19 Completed Epidural steroid injection 14 10/17/19 Completed MRI of lumbar spine 15 09/26/19 Co mpleted Colonoscopy 16, 17 12/21/18 Comple [place] Mammogram - screening 18 11/16/18 Completed Echocardiogram 19 04/11/18 Complet ed Mammogram - screening 20 11/15/17 Completed X-ray of left foot 21 07/18/17 Com pleted X-ray 22 01/16/17 Completed Mammogram 23 10/05/16 Completed PAP test date 09/21/16 Completed Mammogram 24 10/05/15 Completed Lip laceration 25 04/09/15 [facility] ed Left Foot XRAY 26 02/09/15 Complet ed Procedure 09/30/14 Completed Neck Surgery 2007 Completed Cholecystectomy 2005 Completed Right Ulnar Nerve Surgery 2001 Completed Diagnostic Lap 2000 Completed Right Carpal Tunnel Surgery 2000 Completed Right Shoulder Arthroscopy 2000 Completed Left Carpal Tunnel Surgery Completed Mammogram 28 Completed Right Foot Surgery Comple [place] [facility] Completed [address] [place] [address] 1. Removal of posterior instrumentation L4-S1 2. Exploration of fusion L4-S1 3. Lumbar decompression bilateral medial facetectomies foraminotomies L2-L3, L3-L4 4. Posterior spinal fusion L3-L4 5. Placement posterior instrumentation L3-S1 6. Interbody fusion L3-L4 7. Placement of Spira 10 x 22 mm cage at L3-L4 8. Placement locally harvested morselized autograft and posterior gutters 9. Placement I factor combined with V toss in the interbody space and posterior lateral gutters 2Myocardial perfusion results: There is dense breast attenuation. Obesity. The study is of adequate quality for interpretation. Gated MPI demonstrates normal ejection fraction of 72%. There is isolated septal wall motion abnormality consistent with IVCD. there is a small to medium in size mild intensity ficed MPI defect involving the anteroseptal and apical myocardium. This is suggestive of attenuation artifact and /or infarct. There is no evidence of myocardial ischemia. [address] [place] [address] Impression: 1. Mild sinus mucosal thickening. No CT evidence for acute sinusitis. Narrowed but patent major drainage pathways 2. Mild rightward deviation of the nasl septum 4The right superior breast asymmetry is less prominent and not clearly evidenct on the current exam,and is benign and consistent with normal fibroglandular tissue. There is no mammographic evidence of malignancy in the right breast. Return to annual mammogram screening schedule is recommended. (02/16/2023) 5Impression: Rounded 8 mm asymmetry within the right superior breast on MLO images appears stable compared to the February 2022 exam. This effaces on spot compression and true lateral images and is probably benign and likely represents normal fibroglandular tissue. Recommend follow-up diagostic tomosynthesis mammograms and possible targeted ultrasound of the right breat in 3 months to demonstrate longer stability. 6Impression: Tomosysnthesis guided biopsy was not performed as the right superior breast asymmetry was not confidently visualized on wscout images and therefore could ot be biopsied. However the previously described asymmetry is not imaging evident on repeat mammograms performed today, suggesting that the asymmetry likely represent normal fibroglanular tissue. Recommend follow-up diagnostic tomosythesis mammograms and possible targeted ultrasound of the right breast in 3 months to reevaluate. The patient was verbally notified of the results. 7First, right MLO and LM images were obtained after a BB was placed on the skin for biopsy planning purposes. The previously described rounded 8 mm asymmetry seen within the right superiour breast is not evident on the MLO or LM images. 8Impression: Persistent 8 mm nodular asymmetry in the right superior breast on the additonal mammographic images, without a suspicious sonographic correlate evident. The findings remains indeterminateand would recommend attemped tomosynthesis/stereotactic guided biopsy for further evaluation. The patient has been verbally notified of the results. 9Impression: The 8 mm asymmetry in the superior right breast needs additional evaluation. 10there is no mammographic evidence of malignancy. 1 yr screening recommended 11Negative [id number] decompression 13IMPRESSION: ACR BI-RADS CATEGORY 1: NEGATIVE There is no mammographic evidence of malignancy. A 1 year screening mammogram is recommended. 14Lumbar 15DDD at l3-s1, disc protrusion at l5/s1 results in narrowing of the foramen at l5-s1 @[facility]OC 16COLO to cecum, diverticulosis, rectal polyp cold bx 17path lymphoid aggrate and edema. Repeat colo 5 year for fhx of colon polyps 18There is no mammographic evidence of malignancy. A 1 year screening mammogram is recommended. the patient will receive written notification of the results. 19Conclusion: Normal LV size. Mild concentric LVH Normal LV systolic function. LVEF 55-60%. Abnormal septal motion consistent with conduction abnormality. Normal RV size and function No significant valvular pathology. Normal estimate PA and RA pressures Grade 1 diastolic dysfunction. No prior studies for comparison. 20Impression: There is no mammographic evidence of malignancy. A 1 year screening mammogram is recommended. The patient will receive written notification of the results. 21Small heel spur. Otherwise negative study. 22right finger Negative study 23ARC BI-RADs Category 2; Benign, targeted Ultrasound ARC BI-RADS Category 2 Benign No suspicious mammographic or sonographic abnormalities noted at the site of the palpable bilateralbreast lumps. There is no mammographic or targeted sonographic evidence of malignancy. Recommened clinical follow-up. If the lumps are newly palpable,concider fine needle biopsy aspiration by the pathology department to exclude the possibility of an occult malignancy. ( the patient believes the left lump is newly palpable). Also a 1-year screening mammogram is recommended 24CAT 2- Benign 1 year f/u recommended. 25left upper lip, sutures needed 26No fracture or dislocation of the left foot. 27Bilateral digital diagnostic mammogram with cad and targeted bilateral ultrasound 09/30/2014. Impression: No mammographic or sonographic abnormality at the site of bilateral palpable lumps. There is no mammographic or targeted sonographic evidence of malignancy. Recommend clinical follow-up for palpable lumps and cordell decision to bx should be based on clinical grounds. Also recommend routine bilateral screening mammograms in one year. 28[facility] Impression: ACR BI-RADS CATEGORY 2: BENIGN 1. No evidence of malignancy Vital Signs Most recent to oldest [Reference Range]: 1 Patient Weight 97.9 kg (08/28/23 2:34 PM) Temperature [36.5-37.9 DegC] 36.7 DegC (08/28/23 2:34 PM) Heart Rate 98 bpm (08/28/23 2:34 PM) Respiratory Rate 16 br/min (08/28/23 2:34 PM) Blood Pressure 122/76mmHg (08/28/23 2:34 PM) Cuff Pulse Pressure 46 mmHg (08/28/23 2:34 PM) BP Location # 1 Left Arm, Manual (08/28/23 2:34 PM) Social History Social History Type Response Smoking Status Never smoked cigaret gisele Sex Female [facility] Note * PAMELLA Gar, Radha Infante: PERFORM Event Display: [facility] Note Authored Date: [id number] Chief Complaint Pre-op surgery on 09/13/2023 History of Present Illness Aremina presents for preoperative evaluation and consultation [facility] the [facility] prior to [facility]. She has a significant past medical history of chronic HTN without congestive heart failure, hyperlipidemia, adjustment disorderwith anxiety and depression and chronic sinusitis.Last clinic note and preoperative labs were reviewed today. Chronic bilateral lumbar radiculopathy has been uncontrolled. She did undergo lumbar surgeryin January [address] Cedillo, but postoperatively developed increased painthat was not responding tophysical therapy. Had an updated MRI and was found to havenew changeswith reported disc herniation, but results of MRI are unavailable for review today. Regardless, she is scheduled on 09/13/2023for surgery. She is currently using a TENs unitand Tylenol as needed for pain. Has fairlyconstant midto bilateral low back pain that radiates to buttocks and down posterolateral thighs. No fecal incontinence, urinary incontinence, urinary retention, saddle anesthesia, extremity weakness, claudication, falls or loss of balance. Only concern today is that last week she did develop nasal congestion, rhinorrheaand a productivecoughthat has not improved. Has bilateral maxillary sinus pressure and purulent nasal discharge. She is taking Angélica- [place] OTCwith minimal relief. She does have a known historyof asthma,but is not currently using any inhalers that she ran out of them and has not used them chronically. Has also had chest tightnessand shortness of breath after coughing spells. Has intermittent wheezing. No fevers, chills, nausea, vomiting, diarrhea, loss of sense of taste, loss of sense ofsmell, headaches, ear pain, rash, skin changes, dizziness, weakness, arthralgias, myalgias, eye watering, eye itching or mattering. HTN w/ out hx of HTN is chronicandmanaged with lisinopril 5 mgand diltiazem ER 120 mg once daily. Has not been checking BP at home.No EtOH, tobacco or recreational drug use. Tries to walkwhen she is able, but is currently limited in mobilitydue to back pain. She did have a nuclear stress testthat was negative for ischemia in December 2022. Saw cardiology last month for checkin andpreoperative clearance as well. No claudication, chest pain, SOB, palpitations, tachycardia, dizziness, lightheadedness, weakness, near syncope, syncope, nausea, vomiting, diarrhea, constipation, cough, LE edema, headaches, blurred vision, loss of vision, confusion or epistaxis. Adjustment disorder with mixed anxiety and depression has been stable. Admits thatearlier in the yearfollowing her initial spine surgeryin the spring depression was worse so she was limited in her abilityto function, but feels mood has been better.At that time she was switched from Wellbutrin SR 100 mg daily to Wellbutrin XL 150 mg daily with improvement. Also, takes citalopram 40mg daily. Has a great support system. Does not see a therapist. She does have a prescription for lorazepam 0.5 mg, 1 tab p.o. daily that she is using less than once monthly. No thoughts of self-harm, suicidal or homicidal ideations. Mild, persistent asthma is chronic and has recently been uncontrolled given concurrent URI symptoms. [facility] and reports having pulmonaryfunction testsin the last couple of years. Has a prescription for Symbicort 80/4.5 mcg, 2 inhalations p.o. twice daily and albuterol inhaler to use as needed, buthas not needed these medications until recent URI started. Prior to URI she was asymptomatic from apulmonary standpoint. Hyperlipidemia is chronic and now well controlled. In April 2023 atorvastatin was increased from 40 to 80 mg dailyand LDL is now <100. As above, no EtOH, tobacco or recreational drug use. Nopast medical history of type 2 diabetes, CAD, TIA/CVA, PVD, COPD, sleep apnea, blood clotsor complications with anesthesia. Review of Systems ROS:All other systems negative, except HPI. Physical Exam Vitals & Measurements T:36.7C HR:98(Monitored) RR:16 BP:122/76 SpO2:98% WT:97.900kg(Dosing) WT:97.9kg PHQ2 Data(Data Documented on:08/28/2023 14:34) Emotional health assessment NEGATIVE General: Alert and oriented, No acute distress.Pleasant. Audible nasal congestion w/ barking,deep cough. Eye: Pupils are equal, round and reactive to light, Extraocular movements are intact, Normal conjunctiva. HENT: Normocephalic. TMs clear bilaterally. Posterior pharynx is pink. Uvula rises midline. No drooling, stridor or cyanosis. Neck: Supple, No lymphadenopathy, No thyromegaly. Respiratory: Lungs are clear to auscultation, Respirations are non-labored, Breath sounds are equal, Symmetrical chest wall expansion.Diminished air exchange throughout all lung beal, but no audible wheezing, rales or rhonchi. Cardiovascular: Normal rate, Regular rhythm, No murmur, No gallop, Good pulses equal in all extremities, Normal peripheral perfusion. No LE edema. Abdomen: Normoactive BS x 4. Soft. No tenderness, palpable masses or organomegaly. Lymphatics: No submandibular, anterior or posterior cervical adenopathy palpable. Musculoskeletal Normal gait. FROM and 5/5 strength at BLE and BUE. Integumentary: Warm, [place], No pallor. Neurologic: Alert, Oriented, Cranial Nerves II-XII are grossly intact. Cognition and Speech: Oriented, Speech clear and coherent, Functional cognition intact. Psychiatric: Cooperative, Appropriate mood & affect, Normal judgment, Nonsuicidal. Assessment/Plan 1.Pre-operative exam Aremina has been medically optimized forupcoming lumbar spine [facility]to [facility] Preoperative chest x-ray, PT/INR/PTT, urinalysis, BMP, CBC with differentialandoutpatient [facility] cardiology note from last month was reviewed today; all normal. Sandra revised cardiac risk index is estimated enrique ~0.4-0.5% of cardiac complications (sudden , DE, cardiac arrest, ventricular fibrillation, heart block and pulmonary edema). 2.Lumbar radiculopathy As above in #1. 3.Acute bacterial sinusitis Given Augmentin 875 mg, 1 tab p.o. twice daily for 10 days with food. Encouraged rest, clear fluids, humidification and saline nasal rinses. Follow- up if symptoms or not improving after 7 to 10 days, worsen or change. 4.Acute asthma exacerbation Patient does havea mild, acute asthma exacerbation in the settingof upper respiratory symptoms.We will have her restart Symbicort 80/4.5 mcg, 2 inhalations p.o. twice daily x1 month to rinse mouth after each use. Refilled albuterol inhaler 90 mcg, 2 inhalations p.o. 4 times daily as neededfor wheezing, chest tightness or shortness of breath. Reviewed thatif symptoms are not improving over the next 3 to 5 days to contact the office and we will plan to give a short burst of prednisone. Preoperative chest x-ray completed on 08/23/2023 was reviewed today and showed no sign of acute changes. 5.Benign hypertension without CHF Benign HTN without congestive heart failure is chronic and currently well controlled with lisinopril5 mg daily and diltiazem CD1 120 mg once daily. Goal SBP <135 and DBP <85 mmHg. Continue current regimen. 6.Hyperlipidemia Hyperlipidemia is chronic and now well controlled with atorvastatin 80 mg, 1 tab p.o. daily. Updated lipid profile completedearlier this month showedgreat improvement in LDL, which is now <100. Continue current regimen. Time spent on pre-visit plannin minutes on chart review Face to face time spent w/ patient:21 minutes Time spent documenting pertinent clinical information into the EMR:22 minutes Total time: 45 minutes Problem List/Past Medical History Ongoing ALLERGIC RHINITIS, CAUSE UNSPECIFIED Asthma Benign hypertension without CHF Chronic left shoulder pain CHRONIC SINUSITIS DDD (degenerative disc disease), lumbar Heart murmur HTN (hypertension) Hyperlipidemia LBBB (left bundle branch block) Mass of left parotid gland Multiple allergies Onychomycosis of toenail Postoperative back pain Right lumbar radiculopathy Status post lumbar spine surgery for decompression of spinal cord Urinary incontinence, urge Weight disorder Historical Neurogenic claudication due to lumbar spinal stenosis Procedure/Surgical History Orthopedic service (01/06/2023)Radionuclide myocardial perfusion study using technetium Tc^99m^ tetrofosmin (12/29/2022)CT of paranasal sinuses (10/07/2022)Mammogram - screening (10/07/2022)Fluoroscopy guided injection of left facet joint of lumbar spine (07/05/2022)Diagnostic mammogram Right (06/24/2022)Mammogram (03/18/2022)Diagnostic mammogram Right (03/18/2022)Diagnostic mammogram & Right US (03/04/2022) Mammogram - screening (02/15/2022) Mammogram (02/11/2021)Pap smear and HPV cotesting (12/18/2020)Neurogenic claudication due to lumbar spinal stenosis (01/01/2020)Mammogram (11/22/2019)Epidural steroid injection (10/17/2019)MRI of lumbarspine (09/26/2019)Colonoscopy (12/21/2018)Mammogram - screening (11/16/2018)Echocardiogram(04/11/2018)Mammogram - screening (11/15/2017)X-ray of left foot (07/18/2017)X-ray (01/16/2017)Mammogram (10/05/2016)PAP test date (09/21/2016)Mammogram (10/05/2015)Lip laceration (04/09/2015)Left Foot XRAY (02/09/2015)Procedure (09/30/2014)Neck Surgery (2007)Cholecystectomy (2005)Right Ulnar Nerve Surgery (2001)Right Shoulder Arthroscopy (2000)Right Carpal Tunnel Surgery (2000)Diagnostic Lap (2000)[place] TeethLeft Carpal Tunnel SurgeryRightFoot SurgeryMammogram Medications albuterol(Albuterol (Eqv-Proventil HFA) 90 mcg/inh inhalation aerosol), 2 puff, inhaled, q6h albuterol(ProAir HFA 90 mcg/inh inhalation aerosol), 180 mcg= 2 puff, inhaled, q4h, PRN, 1 refills amoxicillin-clavulanate(Augmentin 875 mg-125 mg oral tablet), 1 tab, PO, q12h atorvastatin(Lipitor 80 mg oral tablet), 80 mg= 1 tab, PO, qhs, 3 refills budesonide-formoterol(Symbicort 80 mcg-4.5 mcg/inh inhalation aerosol), 2 puff, inhaled, bid buPROPion(Wellbutrin XL 150 mg/24 hours oral tablet, extended release), 150 mg= 1 tab, PO, q24h, 3 refills cholecalciferol(Vitamin D3 400 intl units oral tablet), 400 Int_Unit= 1 tab, PO, Daily citalopram(citalopram 40 mg oral tablet), See Instructions, 3 refills dilTIAZem(Cardizem CD 120 mg/24 hours oral capsule, extended release), 120 mg= 1 cap, PO, Daily, 3 refills lisinopril(lisinopril 5 mg oral tablet), 5 mg= 1 tab, PO, Daily, 3 refills LORazepam(LORazepam 0.5 mg oral tablet), 0.5 mg= 1 tab, PO, Daily multivitamin, PO, Daily omega-3 polyunsaturated fatty acids(Fish Oil), 1000 mg, PO, tid solifenacin(VESIcare 5 mg oral tablet), 5 mg= 1 tab, PO, Daily, 3 refills Allergies NKA Social History Smoking Status Never smoked cigarettes Alcohol - Denies Alcohol Use 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 Breast cancer: MGM and PGM. Dementia: Father. High Blood Pressure: Mother. Hyperlipidemia..: Mother and Brother. Health Status Family Member(s) Immunizations Vaccine Date Status influenza virus vaccine, inactivated 08/05/2022 Given influenza virus vaccine, inactivated 10/08/2021 Given influenza virus vaccine, inactivated 09/24/2019 Recorded influenza virus vaccine, inactivated 08/20/2018 Given influenza virus vaccine, inactivated 07/18/2017 Given pneumococcal 13-valent vaccine 05/31/2017 Given influenza virus vaccine, inactivated 08/19/2016 Given influenza virus vaccine, inactivated 08/14/2015 Given tetanus/diphtheria/pertuss, acel (Tdap) 03/22/2015 Recorded Comments : 2021-04-09: Historical information-source unspecified diphtheria/pertussis, whole cell/tetanus 03/22/2015 Recorded Comments : 2021-04-09: Historical information-source unspecified influenza virus vaccine, inactivated 08/08/2014 Given pneumococcal 23-valent vaccine 08/12/2013 Given influenza virus vaccine, inactivated 07/26/2013 Given tetanus/diphtheria/pertuss, acel (Tdap) 04/10/2013 Given influenza virus vaccine, inactivated 10/16/2012 Given influenza virus vaccine, inactivated 09/03/2012 Given influenza virus vaccine, inactivated 08/25/2011 Given Recommendations Health Maintenance Pending(in the next year) OverDue Adult Influenza Vaccine due05/06/23and every 1year Due Adult COVID-19 Vaccination due08/28/23Unknown Frequency Hepatitis C Screening due08/28/23One-time only Shingles Vaccine due08/28/23One-time only Due In Future Body Mass Index not due until08/27/24and every 1year Satisfied(in the past 1 year) Satisfied Body Mass Index on03/22/23.Satisfied by EMERITA Andrew Wanda Patient Care team information Care Team Personnel Name: MD Marek, Chrissie Nelson Position: Physician - Radiologist Member Role: Lifetime - never expires Address: Address: [facility] [address] [place] [address] Name: PAMELLA Gar, Radha Infante Position: Physician Asst Exmpt - Family Med Member Role: Primary Care Provider Address: Address: [address] [place] [address] [address] [place] [address] Care Team Related Persons Name: SIMONE MENDOZA Address: [place] Address: home [address] [facility] [place] [phone] Name: NEENA MENDOZA Address: home [address] [facility] [place] [phone] Name: TIM MENDOZA Address: [place] Address: home [address] [facility] [place] [id number] Name: NAHID RODRIGES Address: home [address] [place] [id number]
== END 2023-09-17 12:45 | disposition home or self-care (01) | DRG 454 ==
LOC: ASU 09:55 → 3W 15:02